=== PATIENT | female | born 1980 | race Caucasian/White ===

== ENCOUNTER 2020-01-13 13:25 | Emergency (ER) | payer BC, SELFPAY ==
--- NOTE | 2020-01-13 16:08 | CT_ITS ---
EXAMINATION: CT ABDOMEN AND PELVIS WITHOUT CONTRAST CLINICAL INFORMATION: Flank pain COMPARISON: Lumbar radiographs 06/18/2018 TECHNIQUE: Multidetector volumetric imaging was performed from the superior aspect of the liver through the pubic symphysis. No oral or intravenous contrast. Sagittal and coronal reformatted images were obtained on the technologist's workstation. This CT examination was performed using dose optimization techniques as appropriate, variously including the following: *Automated exposure control *Adjustment of mA and/or kV according to patient size (this includes techniques or standardized protocols for targeted exams where dose is matched to indication/reason for exam; i.e. extremities or head) *Use of iterative reconstruction technique DLP: 919 mGy-cm FINDINGS: LUNG BASES: The visualized lung bases are unremarkable. LIVER, GALLBLADDER, AND BILIARY TREE: The liver is normal in size, shape, and attenuation. No focal hepatic lesion or biliary ductal dilatation is present. The gallbladder is unremarkable with no evidence of radiopaque gallstones, gallbladder wall thickening, or obvious pericholecystic inflammatory changes. PANCREAS: Unremarkable. SPLEEN: Unremarkable. ADRENAL GLANDS: Unremarkable. KIDNEYS AND URETERS: There is mild left hydronephrosis secondary to a proximal left ureteral calculus at level L3-L4 measuring 5 mm in diameter, 691 HU attenuation, and residing 15.5 cm from the flank. There is no definite perinephric stranding. No other left urinary tract calculi. Right kidney shows no hydronephrosis, hydroureter, or perinephric stranding. There are 2 calculi on the right mid and lower pole, larger under 4 mm. BLADDER: Unremarkable. GASTROINTESTINAL TRACT: No bowel obstruction or inflammatory changes in the bowel or mesentery. No ascites or fluid collection. ABDOMINAL WALL: No significant hernia is appreciated. LYMPH NODES: No lymphadenopathy. VASCULAR: Unremarkable. PELVIC VISCERA: Unremarkable. OSSEOUS STRUCTURES: Unremarkable. CT/CT abdomen pelvis wo IV con IMPRESSION: 1. Mild left hydronephrosis secondary to a 5 mm proximal ureteral calculus at level L3-L4. 2. Two nonobstructing calculi right kidney, larger under 4 mm.
--- NOTE | 2020-01-13 16:13 | ED.ABDPAIN ---
HPI - Abdominal Pain General Chief Complaint: Abdominal Pain Stated Complaint: ?kidney stone Time Seen by Provider: 01/13/20 16:08 Source: patient Mode of arrival: ambulatory Limitations: no limitations History of Present Illness HPI narrative: Left side flank pain x 1 days went to sent here for further eval MD elicited complaint: flank pain Pertinent past history: kidney stones Onset (ago): hour(s) Pain Consistency: constant Severity: moderate Quality: stabbing and aching Radiation: LLQ and L flank Associated symptoms: nausea Related Data Patient : No Home Medications Medication Instructions Recorded Confirmed acetaminophen 325 mg tablet 650 mg PO Q6H 01/13/20 01/13/20 gabapentin 300 mg capsule 300 mg PO BID 01/13/20 01/13/20 oseltamivir 75 mg capsule 75 mg PO DAILY 01/13/20 01/13/20 oxycodone 5 mg tablet 5 mg PO Q6H PRN 01/13/20 01/13/20 Previous Rx's Medication Instructions Recorded naproxen 500 mg PO BID PRN #30 tab 01/13/20 oxycodone 5 mg PO Q8H PRN #14 tab 01/13/20 prednisone 20 mg PO DAILY #5 tab 01/13/20 tamsulosin [Flomax] 0.4 mg PO DAILY #10 cap 01/13/20 Allergies Allergy/AdvReac Type Severity Reaction Status Date / Time naproxen [NAPROXEN] Allergy Severe ANAPHALYXIS Unverified 12/05/19 19:37 codeine [CODEINE] Allergy Intermediate RASH Unverified 12/05/19 19:37 Penicillins [PCN] Allergy Intermediate UNKNOWN Unverified 12/05/19 19:37 penicillin V Allergy Unknown Verified 06/01/19 00:00 [id number]-[id number]-[id number] Allergy Unknown Uncoded 06/01/19 00:00 liquid codeine Allergy Unknown Uncoded 06/28/19 00:00 naproxen Allergy Unknown Uncoded 06/28/19 00:00 penicillin Allergy Unknown Uncoded 06/28/19 00:00 Review of Systems Review of Systems Constitutional: No Weight loss, No Fever, No Chills, No Night Sweats, No Fatigue, No Malaise ENT/Mouth: No Hearing loss, No Ear Pain, No Nasal Congestion, No Sinus Pain, No Hoarseness, No sore throat, No Rhinorrhea, No Swallowing Difficulty Eyes: No Eye Pain, No Swelling, No Redness, No Foreign Body, No Discharge, No Vision Changes Cardiovascular: No Chest Pain, No SOB, No Dyspnea on Exertion, No Orthopnea, No Edema, No Palpitations Respiratory: No Cough, No Sputum, No Wheezing, No Smoke Exposure, No Dyspnea Gastrointestinal: + Nausea, No Vomiting, No Diarrhea, No Constipation, + abdominal Pain, No Hematochezia, No Melena Genitourinary: no irregular bleeding, No Dysuria, No Urinary Frequency, No Hematuria, No Urinary Incontinence, No Urgency, No Flank Pain, No Urinary Flow Changes, No Hesitancy Musculoskeletal: No joint pain, No Myalgias, No Joint Swelling Skin: No Skin Lesions, No rash Neuro: No Weakness, No Numbness, No Paresthesias, No Loss of Consciousness, No Dizziness, No Headache Psych: No Anxiety/Panic, No Depression, No SI/HI/AH/VH, No Social Issues Heme/Lymph: No Bruising, No Bleeding,No Lymphadenopathy Endocrine: No Polyuria, No Polydipsia, No Temperature Intolerance Yes all other systems are reviewed and are negative Physical Exam Vital Signs: Vital Signs: Vital Signs Pulse Resp BP Pulse Ox 01/13/20 19:14 73 16 130/75 98 Body Mass Index 45.9 reviewed Const: General: cooperative and healthy appearing; No acute distress or intoxicated appearing Nutritional Appearance: average body habitus Orientation/consciousness: patient oriented x3 HENMT: Head: Yes normal to inspection Ears: hearing grossly normal bilaterally Eyes: General: appearance normal, both eyes and all related structures Visual Juarez: normal visual juarez by confrontation Neck: Neck: Yes normal visual inspection and No tender Thyroid: Thyroid normal Chest: Chest palpation & inspection: normal inspection of the chest Resp: Effort & Inspection: normal respiratory effort Cardio: Jugular venous distension: no JVD GI: Inspection: Yes normal to inspection Percussion: Yes normal to percussion Auscultation: normal bowel sounds : General: Yes no CVA tenderness Back/Spine/Pelvis: Back: no CVA tenderness Skin: General skin exam: no rashes or lesions noted Neuro: General: patient oriented x3 Extrem: General: Yes normal to inspection Course Course Course Narrative: Much more comfortable after pain medicine. 5 mm stone in the proximal ureter with mild associated hydro. Given Flomax case discussed with Urology recommendation for 20 mg of prednisone daily for 5 days along with pain management and will see in office. Dr. Harris. Patient comfortable plan. Requesting discharge stable for discharge. MDM - Abdominal Pain Lab Data Result diagrams: 01/13/20 16:55 01/13/20 16:55 Labs: Lab Results 01/13/20 01/13/20 01/13/20 Range/Units 16:55 16:55 16:55 WBC 10.7 (4.8-10.8) X10*3/uL RBC 4.73 (4.20-5.50) X10*6/uL Hgb 14.0 (12.0-16.0) g/dl Hct 41.8 (37-47) % MCV 88.4 (80-98) fL MCH 29.6 (27.0-33.0) pg MCHC 33.5 (31.0-35.0) g/dl RDW 12.6 (11.0-16.0) % Plt Count 279 (160-400) X10*3/uL MPV 10.1 (9.4-12.3) fL Immature Gran % (Auto) 0.4 (0.0-0.4) % Neut % (Auto) 79.9 H (45-73) % Lymph % (Auto) 13.0 L (20-40) % Villalba % (Auto) 4.4 (2-11) % Eos % (Auto) 1.8 (0-4) % Baso % (Auto) 0.5 (0-2) % Lymph # (Auto) 1.4 (1.2-4.9) X10*3/uL Villalba # (Auto) 0.5 (0.1-1.2) X10*3/uL Eos # (Auto) 0.2 (0.0-0.4) X10*3/uL Baso # (Auto) 0.1 (0.0-0.2) X10*3/uL Abs Immat Gran (auto) 0.04 H (0.00-0.03) X10*3/uL Absolute Neuts (auto) 8.6 H (2.0-8.3) X10*3/uL Absolute Nucleated RBC 0.000 (0.0-0.012) X10*3/uL Nucleated RBC % (auto) 0.0 (0.0-0.2) /100WBC Sodium 140 (135-145) mmol/L Potassium 4.2 (3.3-5.1) mmol/l Chloride 106 (96-108) mmol/L Carbon Dioxide 25 (22-29) mmol/L Anion Gap 13 (12-20) BUN 11 (9-16) mg/dL Creatinine 0.78 (0.5-1.4) mg/dL Estim Creat Clear Calc 112.3 Estimated GFR > 60 Random Glucose 92 (60-115) mg/dL Calcium 8.9 (8.4-10.2) mg/dL Total Bilirubin 0.4 (0.0-1.0) mg/dL AST 17 (5-31) U/L ALT 20 (0-31) U/L Alkaline Phosphatase 68 (39-117) U/L Total Protein 6.8 (6.5-8.0) g/dL Albumin 4.2 (3.5-5.0) g/dL Urine Color YELLOW Urine Appearance CLOUDY Urine pH 5.5 (5.0-8.0) Ur Specific [place] 1.025 (1.005-1.025) Urine Protein NEG (NEG-TRACE) MG/DL Urine Glucose (UA) NEG (NEG) MG/DL Urine Ketones 15 (NEG) MG/DL Urine Blood 2+ H (NEG) Urine Nitrite NEG (NEG) Ur Leukocyte Esterase NEG (NEG) Urine RBC 5-9 H (0) /HPF Urine WBC 0-2 (0-4) /HPF Ur Squamous Epith Cells 4+ /LPF Urine Bacteria 2+ /LPF Discharge Plan Discharge Clinical Impression: Calculus of kidney Patient Disposition: Home, Self-Care Instructions: Kidney Stones (ED), How to Strain Your Urine (ED) Additional Instructions: drink plenty fluids Take medication as prescribed Follow-up with Urology (Dr. Harris as discussed) Return if any concerns or worsening symptoms Thank you Prescriptions: New naproxen 500 mg tablet 500 mg PO BID PRN (Reason: pain) Qty: 30 RF: 0 prednisone 20 mg tablet 20 mg PO DAILY Qty: 5 RF: 0 oxycodone 5 mg tablet 5 mg PO Q8H PRN (Reason: pain) Qty: 14 RF: 0 tamsulosin [Flomax] 0.4 mg capsule 0.4 mg PO DAILY Qty: 10 RF: 0 No Action gabapentin 300 mg capsule 300 mg PO BID RF: 0 oxycodone 5 mg tablet 5 mg PO Q6H PRNRF: 0 acetaminophen 325 mg tablet 650 mg PO Q6H RF: 0 oseltamivir 75 mg capsule 75 mg PO DAILY RF: 0 Referrals: Josh Harris MD [Physician] - 1 week Avelina Live MD [Primary Care Provider] - 10 days Interventions: ED Discharge Assessment Last Done: 01/13/20 21:25 Discharge Date/Time: 01/13/20 21:25 [facility] Past Medical History Attestation statement: The following information was validated with the patient. Social History Social History Alcohol intake: unknown Smoking Status: Unknown if ever smoked Use of substances other than those prescribed or required for medical reasons: No Advance Directives: No Advance Directives Information Provided: Yes
[2020-01-13 16:20] VITALS: BP 132/78; PULSE 78; RESP 18; TEMP 36.7; O2SAT 97; BMI 45.9
[2020-01-13] MEDS: 0.9 % Sodium Chloride 500 ML 1000 ML IV ×2 (17:04→20:01)
[2020-01-13] MEDS: ondansetron HCL 4 MG/2 ML VIAL IVPUSH (17:05)
[2020-01-13] MEDS: Ketorolac Tromethamine 30 MG/ML VIAL IVPUSH (17:05)
[2020-01-13 17:10] LABS: MANUAL DIFF FLAG NO
[2020-01-13 17:11] LABS: Basophils Absolute Auto 0.1 X10*3/uL (0.0-0.2); Basophils Percent Auto 0.5 % (0-2); Eosinophils Absolute Auto 0.2 X10*3/uL (0.0-0.4); Eosinophils Percent Auto 1.8 % (0-4); Hematocrit 41.8 % (37-47); Imm Gran Abs Auto 0.04 X10*3/uL (0.00-0.03); Imm Gran Pct Auto 0.4 % (0.0-0.4); Lymphocytes Absolute Auto 1.4 X10*3/uL (1.2-4.9); Mean Corpuscular HGB Conc 33.5 g/dl (31.0-35.0); Mean Corpuscular Hemoglobin 29.6 pg (27.0-33.0); Mean Corpuscular Volume 88.4 fL (80-98); Mean Platelet Volume 10.1 fL (9.4-12.3); Monocytes Absolute Auto 0.5 X10*3/uL (0.1-1.2); Monocytes Percent Auto 4.4 % (2-11); Neutrophils Absolute Auto 8.6 X10*3/uL (2.0-8.3); Neutrophils Percent Auto 79.9 % (45-73); Platelet Count 279 X10*3/uL (160-400); Red Blood Count 4.73 X10*6/uL (4.20-5.50); Red Cell Distribution Width 12.6 % (11.0-16.0); White Blood Count 10.7 X10*3/uL (4.8-10.8)
[2020-01-13 17:12] LABS: Glucose Urine UA NEG (NEG); Leukocyte Esterase Urine NEG (NEG); Nitrite Urine NEG (NEG); PH 5.5 (5.0-8.0); Specific Gravity - Urine 1.025 (1.005-1.025); Urine Blood 2+ (NEG); Urine Ketones 15 MG/DL (NEG); Urine Protein NEG (NEG-TRACE)
[2020-01-13 17:18] LABS: Appearance Urine CLOUDY; Color Urine YELLOW
[2020-01-13 17:23] LABS: Bacteria Urine 2+ /LPF; Squamous Epithelial Cell Urine 4+ /LPF; WBC Urine 0-2 /HPF (0-4)
[2020-01-13 17:44] LABS: Alanine Aminotransferase 20 U/L (0-31); Albumin Level 4.2 g/dL (3.5-5.0); Alkaline Phosphatase 68 U/L (39-117); Anion Gap 13 (12-20); Aspartate Amino Transferase 17 U/L (5-31); Bilirubin Total 0.4 mg/dL (0.0-1.0); Blood Urea Nitrogen 11 mg/dL (9-16); Carbon Dioxide 25 mmol/L (22-29); Chloride 106 mmol/L (96-108); Creatinine Clr Calc Pharmacy 112.3; Estimated Glomerular Filt Rate > 60; Glucose Random 92 mg/dL (60-115); Potassium 4.2 mmol/l (3.3-5.1); Sodium 140 mmol/L (135-145); Total Protein 6.8 g/dL (6.5-8.0)
[2020-01-13 17:47] LABS: Calcium 8.9 mg/dL (8.4-10.2)
[2020-01-13 19:14] VITALS: BP 130/75; PULSE 73; RESP 16; O2SAT 98
[2020-01-13] MEDS: oxyCODONE HCl Immed Release 5 MG TABLET PO (19:15)
[2020-01-13] MEDS: Tamsulosin HCL 0.4 MG CAPSULE PO (19:15)
[2020-01-13] MEDS: Morphine Sulfate 4 MG/ML CARTRIDGE IVPUSH (19:15)
[2020-01-13] MEDS: HYDROmorphone HCl 1 MG/ML SYRINGE IVPUSH (20:00)
== END 2020-01-13 21:25 | disposition home or self-care (01) ==
PROVIDERS: Nurse Practitioner Primary Care; Emergency Provider Internal Medicine; PCP Internal Medicine
DX: N20.0 Calculus of kidney (principal); Z79.899 Other long term (current) drug therapy
CPT/HCPCS: 36415; 74176; 80053; 81001; 85025; 96374; 96375; 99284; J1170; J1885; J2270; J2405

== ENCOUNTER → 2020-01-17 09:17 | Outpatient (BNVA) | payer BC, SELFPAY | PROVIDERS: PCP Internal Medicine; Referring Provider Internal Medicine; Visit Provider Urology | DX: N20.0 Calculus of kidney (principal); Z79.891 Long term (current) use of opiate analgesic ==

== ENCOUNTER 2020-02-17 17:57 | Outpatient (REF) | payer BC, SELFPAY | END 2020-02-17 17:58 | disposition home or self-care (01) | LOC: HO.LAB 17:57 | PROVIDERS: PCP Internal Medicine; Visit Provider Internal Medicine | DX: Z20.828 Contact with and (suspected) exposure to other viral communicable diseases (principal) | CPT/HCPCS: U0003 ==

== ENCOUNTER 2020-03-11 09:08 | Outpatient (REF) | payer BC, SELFPAY | END 2020-03-11 09:09 | disposition home or self-care (01) | LOC: HO.LAB 09:08 | PROVIDERS: Visit Provider Nurse Practitioner Family | DX: Z20.828 Contact with and (suspected) exposure to other viral communicable diseases (principal); J01.00 Acute maxillary sinusitis, unspecified | CPT/HCPCS: 87071; 87880; U0003 ==

== ENCOUNTER 2020-03-31 | Outpatient (REF) | payer BC, SELFPAY | END 2020-03-31 00:01 | disposition home or self-care (01) | LOC: HO.LNP | PROVIDERS: Visit Provider Urology | DX: N20.0 Calculus of kidney (principal); N20.2 Calculus of kidney with calculus of ureter | CPT/HCPCS: 82365; 88300 ==

== ENCOUNTER → 2020-03-31 09:26 | Outpatient (BNVA) | payer BC, SELFPAY | PROVIDERS: PCP Internal Medicine; Visit Provider Urology | DX: Z76.89 Persons encountering health services in other specified circumstances (principal) ==

== ENCOUNTER 2020-10-21 14:02 | Outpatient (REF) | payer BC, SELFPAY ==
--- NOTE | ~2020-10-21 | US_ITS ---
EXAMINATION: US RETROPERITONEAL LIMITED (RENAL ONLY) CLINICAL INFORMATION: Calculus of kidney. COMPARISON: CT abdomen and pelvis without contrast dated 01/13/2020. TECHNIQUE: Real-time imaging of the kidneys. FINDINGS: RIGHT KIDNEY: 10.4 x 5.1 x 5.7 cm (SAG x AP x TRV). The kidney is normal in size, contour, and echogenicity. Renal cortical thickness is normal. There is a 2 x 3 mm stone in the lower pole. No focal parenchymal lesions or hydronephrosis. LEFT KIDNEY: 11.2 x 5.7 x 5.4 cm (SAG x AP x TRV). The kidney is normal in size, contour, and echogenicity. Renal cortical thickness is normal. There is a 2 x 3 mm stone in the lower pole. No focal parenchymal lesions or hydronephrosis. US/US renal BI IMPRESSION: Small bilateral renal stones.
== END 2020-10-21 14:03 | disposition home or self-care (01) ==
LOC: HO.US 14:02
PROVIDERS: Visit Provider Urology
DX: N20.0 Calculus of kidney (principal)
CPT/HCPCS: 76775

== ENCOUNTER 2020-10-23 07:12 | Outpatient (REF) | payer BC, SELFPAY ==
[2020-10-23 11:15] LABS: Hematocrit 40.7 % (37-47); Hemoglobin 13.7 g/dl (12.0-16.0); Mean Corpuscular HGB Conc 33.7 g/dl (31.0-35.0); Mean Corpuscular Hemoglobin 29.9 pg (27.0-33.0); Mean Corpuscular Volume 88.9 fL (80-98); Mean Platelet Volume 10.4 fL (9.4-12.3); Platelet Count 273 X10*3/uL (160-400); Red Blood Count 4.58 X10*6/uL (4.20-5.50); Red Cell Distribution Width 12.1 % (11.0-16.0); White Blood Count 5.9 X10*3/uL (4.8-10.8)
[2020-10-23 11:53] LABS: TSH reflex Free T4 1.87 uIU/mL (0.32-4.0)
[2020-10-23 11:56] LABS: Alanine Aminotransferase 12 U/L (0-31); Albumin Level 3.9 g/dL (3.5-5.0); Alkaline Phosphatase 71 U/L (39-117); Anion Gap 14 (12-20); Aspartate Amino Transferase 20 U/L (5-31); Bilirubin Total 0.4 mg/dL (0.0-1.0); Blood Urea Nitrogen 12 mg/dL (9-16); Calcium 9.3 mg/dL (8.4-10.2); Carbon Dioxide 24 mmol/L (22-29); Chloride 107 mmol/L (96-108); Cholesterol 160 mg/dL; Estimated Glomerular Filt Rate > 60; Glucose Fasting 87 mg/dL (60-99); HDL Cholesterol 36 mg/dL; LDL Cholesterol Calculated 100 mg/dl; Potassium 4.6 mmol/L (3.3-5.1); Sodium 140 mmol/L (135-145); Total Protein 6.9 g/dL (6.5-8.0); Triglycerides 122 mg/dL
[2020-10-24 18:21] LABS: Follicle Stimulating Hormone 4.8 mIU/mL
== END 2020-10-23 07:13 | disposition home or self-care (01) ==
LOC: HO.HMGCLDS 07:12
PROVIDERS: PCP Internal Medicine; Visit Provider Internal Medicine
DX: N64.4 Mastodynia (principal); R23.2 Flushing
CPT/HCPCS: 36415; 80053; 80061; 83001; 84443; 85027

== ENCOUNTER → 2020-10-29 09:40 | Outpatient (BNVA) | payer BC, SELFPAY | PROVIDERS: PCP Internal Medicine ==

== ENCOUNTER 2021-10-22 09:39 | Outpatient (REF) | payer OTHER, SELFPAY ==
[2021-10-22 11:52] LABS: MANUAL DIFF FLAG NO
[2021-10-22 12:06] LABS: Basophils Absolute Auto 0.1 X10*3/uL (0.0-0.2); Basophils Percent Auto 1.1 % (0-2); Eosinophils Absolute Auto 0.2 X10*3/uL (0.0-0.4); Eosinophils Percent Auto 3.4 % (0-4); Hematocrit 41.2 % (37.0-47.0); Hemoglobin 13.9 g/dl (12.0-16.0); Imm Gran Abs Auto 0.03 X10*3/uL (0.00-0.03); Imm Gran Pct Auto 0.5 % (0.0-0.4); Lymphocytes Absolute Auto 1.8 X10*3/uL (1.2-4.9); Lymphocytes Percent Auto 29.6 % (20-40); Mean Corpuscular HGB Conc 33.7 g/dl (31.0-35.0); Mean Corpuscular Hemoglobin 29.6 pg (27.0-33.0); Mean Corpuscular Volume 87.8 fL (80.0-98.0); Mean Platelet Volume 10.3 fL (9.4-12.3); Monocytes Absolute Auto 0.4 X10*3/uL (0.1-1.2); Monocytes Percent Auto 7.2 % (2-11); Neutrophils Absolute Auto 3.6 x10*3/uL (2.0-8.3); Neutrophils Percent Auto 58.2 % (45-73); Platelet Count 282 X10*3/uL (160-400); Red Blood Count 4.69 X10*6/uL (4.20-5.50); Red Cell Distribution Width 12.5 % (11.0-16.0); White Blood Count 6.1 X10*3/uL (4.8-10.8)
[2021-10-22 12:48] LABS: Alanine Aminotransferase 20 U/L (0-31); Alkaline Phosphatase 68 U/L (39-117); Anion Gap 11 (12-20); Aspartate Amino Transferase 16 U/L (5-31); Bilirubin Total 0.6 mg/dL (0.0-1.0); Blood Urea Nitrogen 12 mg/dL (9-16); Calcium 8.9 mg/dL (8.4-10.2); Carbon Dioxide 28 mmol/L (22-29); Chloride 106 mmol/L (96-108); Cholesterol 174 mg/dL; Estimated Glomerular Filt Rate > 60; Glucose Fasting 88 mg/dL (60-99); HDL Cholesterol 38 mg/dL; LDL Cholesterol Calculated 111 mg/dl; Potassium 4.2 mmol/L (3.3-5.1); Sodium 141 mmol/L (135-145); Total Protein 6.5 g/dL (6.5-8.0); Triglycerides 127 mg/dL
[2021-10-22 13:10] LABS: TSH reflex Free T4 2.06 uIU/mL (0.32-4.0)
== END 2021-10-22 09:40 | disposition home or self-care (01) ==
LOC: HO.WFDLDS 09:39
PROVIDERS: Visit Provider Internal Medicine
DX: Z00.00 Encounter for general adult medical examination without abnormal findings (principal); Z13.220 Encounter for screening for lipoid disorders; Z13.29 Encounter for screening for other suspected endocrine disorder
CPT/HCPCS: 36415; 80053; 80061; 84443; 85025

== ENCOUNTER 2021-10-27 15:04 | Outpatient (REF) | payer OTHER, SELFPAY ==
--- NOTE | ~2021-10-27 | US_ITS ---
EXAMINATION: US RETROPERITONEAL LIMITED (RENAL ONLY) CLINICAL INFORMATION: Calculus of kidney. COMPARISON: US retroperitoneal limited (renal only) 10/21/2020. Selected portions of CT abdomen and pelvis without contrast 01/13/2020. TECHNIQUE: Real-time imaging of the kidneys. FINDINGS: RIGHT KIDNEY: 10.8 x 4.8 x 5.4 cm (SAG x AP x TRV). The kidney is normal in size, contour, and echogenicity. Renal cortical thickness is normal. No shadowing calculi or focal parenchymal lesions. No hydronephrosis. LEFT KIDNEY: 11.2 x 5.3 x 5.4 cm (SAG x AP x TRV). The kidney is normal in size, contour, and echogenicity. Renal cortical thickness is normal. No shadowing calculi or focal parenchymal lesions. No hydronephrosis. US/US renal BI IMPRESSION: No evidence of obstruction, suspicious mass or shadowing calculus Previous CT demonstrated some punctate nonobstructing calculi.
== END 2021-10-27 15:05 | disposition home or self-care (01) ==
LOC: HO.US 15:04
PROVIDERS: PCP Internal Medicine
DX: N20.0 Calculus of kidney (principal)
CPT/HCPCS: 76775

== ENCOUNTER 2021-10-29 14:16 | Outpatient (REF) | payer OTHER, SELFPAY ==
--- NOTE | ~2021-10-29 | MM_ITS ---
EXAMINATION: MM SCREENING DIGITAL BREAST TOMOSYNTHESIS, BILATERAL CLINICAL INFORMATION: Screening. Asymptomatic. Age 41. No prior mammography. The lifetime risk of breast cancer based on the Tyrer-Cuzick Model is 19%. COMPARISON: None (current study represents initial baseline exam). TECHNIQUE: Digital breast tomosynthesis is performed in both the craniocaudal and mediolateral oblique views along with computer-aided detection (CAD). Synthesized 2D images are generated from the tomosynthesis. FINDINGS: There are scattered areas of fibroglandular density (ACR BI-RADS breast composition Category b). There are no significant masses, abnormal calcifications, or other abnormalities. The axilla and skin contours are unremarkable. MM/MM tomosynthesis screening BI IMPRESSION: No mammographic evidence of malignancy. ASSESSMENT: BI-RADS 1: Negative RECOMMENDATION: Routine annual mammography screening. This patient's information was entered into a reminder system with a target due date for their next mammogram.
== END 2021-10-29 14:17 | disposition home or self-care (01) ==
LOC: HO.MAMMO 14:16
PROVIDERS: PCP Internal Medicine; Visit Provider Internal Medicine
DX: Z12.31 Encounter for screening mammogram for malignant neoplasm of breast (principal)
CPT/HCPCS: 77063; 77067

== ENCOUNTER 2022-03-15 10:17 | Outpatient (REF) | payer OTHER, SELFPAY ==
[2022-03-15 14:37] LABS: Influenza A PCR NEGATIVE (Negative); Influenza B PCR NEGATIVE (Negative); Resp Syncy Virus RNA Qual PCR NEGATIVE (Negative); SARS COV2 PCR INHOUSE NEGATIVE (Negative)
== END 2022-03-15 10:18 | disposition home or self-care (01) ==
LOC: HO.LAB 10:17
PROVIDERS: Visit Provider Family Medicine
DX: Z20.822 Contact with and (suspected) exposure to COVID-19 (principal); B34.9 Viral infection, unspecified; R09.89 Other specified symptoms and signs involving the circulatory and respiratory systems
CPT/HCPCS: 0241U

== ENCOUNTER 2022-03-15 11:40 | Outpatient (REF) | payer OTHER, SELFPAY ==
--- NOTE | ~2022-03-15 | XR_ITS ---
EXAMINATION: XR CHEST CLINICAL INFORMATION: Cough COMPARISON: None TECHNIQUE: 2 views of the chest were obtained. FINDINGS: The cardiac and mediastinal contours are normal. There are bilateral lower lung infiltrates suggestive of pneumonia. There is no pleural effusion or pneumothorax. Bony structures are unremarkable. XR/XR chest 2V IMPRESSION: Bilateral lower lung pneumonia.
== END 2022-03-15 11:41 | disposition home or self-care (01) ==
LOC: HO.HMGCX 11:40
PROVIDERS: PCP Internal Medicine; Visit Provider Family Medicine
DX: R05.9 Cough, unspecified (principal)
CPT/HCPCS: 71046

== ENCOUNTER 2022-04-14 15:09 | Outpatient (REF) | payer OTHER, SELFPAY ==
--- NOTE | ~2022-04-14 | XR_ITS ---
EXAMINATION: XR HIP, RIGHT CLINICAL INFORMATION: Pain. COMPARISON: None TECHNIQUE: AP and frog-leg lateral views of the right hip are submitted, together with a frontal view of the pelvis. FINDINGS: Bones and soft tissues are normal. No fracture. Alignment is anatomic. Hip joint space is maintained. XR/XR hip RT w PEL1V IMPRESSION: Normal right hip.
== END 2022-04-14 15:10 | disposition home or self-care (01) ==
LOC: HO.XRAY 15:09
PROVIDERS: PCP Internal Medicine; Visit Provider Physical Medicine & Rehabilitation
DX: M25.551 Pain in right hip (principal)
CPT/HCPCS: 73502

== ENCOUNTER 2022-04-27 09:04 | Outpatient (REF) | payer OTHER, SELFPAY ==
--- NOTE | ~2022-04-27 | XR_ITS ---
EXAMINATION: XR CHEST CLINICAL INFORMATION: Cough. COMPARISON: 03/15/2022 chest radiographs. TECHNIQUE: Frontal view of the chest was obtained. FINDINGS: No significant abnormality is noted involving the heart, lungs, mediastinum, bony thorax or soft tissues. XR/XR chest 1V IMPRESSION: No acute cardiopulmonary process. Interval resolution of previously seen infiltrates.
[2022-04-27 11:24] LABS: MANUAL DIFF FLAG NO
[2022-04-27 11:33] LABS: Basophils Absolute Auto 0.1 X10*3/uL (0.0-0.2); Eosinophils Absolute Auto 0.4 X10*3/uL (0.0-0.4); Eosinophils Percent Auto 6.5 % (0-4); Hematocrit 40.6 % (37.0-47.0); Imm Gran Abs Auto 0.03 X10*3/uL (0.00-0.03); Imm Gran Pct Auto 0.5 % (0.0-0.4); Lymphocytes Absolute Auto 1.7 X10*3/uL (1.2-4.9); Lymphocytes Percent Auto 28.1 % (20-40); Mean Corpuscular HGB Conc 34.5 g/dl (31.0-35.0); Mean Corpuscular Hemoglobin 30.8 pg (27.0-33.0); Mean Corpuscular Volume 89.4 fL (80.0-98.0); Mean Platelet Volume 10.2 fL (9.4-12.3); Monocytes Absolute Auto 0.5 X10*3/uL (0.1-1.2); Monocytes Percent Auto 7.4 % (2-11); Neutrophils Absolute Auto 3.5 x10*3/uL (2.0-8.3); Neutrophils Percent Auto 56.5 % (45-73); Platelet Count 315 X10*3/uL (160-400); Red Blood Count 4.54 X10*6/uL (4.20-5.50); Red Cell Distribution Width 12.7 % (11.0-16.0); White Blood Count 6.1 X10*3/uL (4.8-10.8)
[2022-04-27 12:13] LABS: Alanine Aminotransferase 29 U/L (0-31); Albumin Level 4.2 g/dL (3.5-5.0); Alkaline Phosphatase 82 U/L (39-117); Anion Gap 12 (12-20); Aspartate Amino Transferase 19 U/L (5-31); Bilirubin Total 0.4 mg/dL (0.0-1.0); Blood Urea Nitrogen 13 mg/dL (9-16); Calcium 9.1 mg/dL (8.4-10.2); Carbon Dioxide 23 mmol/L (22-29); Chloride 107 mmol/L (96-108); Estimated Glomerular Filt Rate > 60; Glucose Random 92 mg/dL (60-115); Potassium 4.3 mmol/L (3.3-5.1); Sodium 138 mmol/L (135-145); Total Protein 6.8 g/dL (6.5-8.0)
[2022-04-27 12:30] LABS: Appearance Urine Clear; Color Urine Yellow; Glucose Urine UA Negative (Negative); Leukocyte Esterase Urine Negative (Negative); Nitrite Urine Negative (Negative); Specific Gravity - Urine 1.015 (1.005-1.025); Urine Blood Negative (Negative); Urine Ketones Negative (Negative); Urine Protein Negative (Neg-Trace)
[2022-04-27 12:43] LABS: Bacteria Urine None Seen (None Seen); Hyaline Casts Urine 0-2 /LPF (0-2); RBC Urine 0-2 /HPF (0-2); Squamous Epithelial Cell Urine 0-2 /HPF (0-2); WBC Urine 0-5 /HPF (0-5)
== END 2022-04-27 09:05 | disposition home or self-care (01) ==
LOC: HO.HMGCLDS 09:04
PROVIDERS: Visit Provider Internal Medicine
DX: R05.9 Cough, unspecified (principal)
CPT/HCPCS: 36415; 71045; 80053; 81001; 85025

== ENCOUNTER 2022-10-17 10:10 | Outpatient (AMB) | payer OTHER, SELFPAY ==
--- NOTE | 2022-10-17 10:13 | MHC.PC.OV ---
Vital Signs 10/17/22 10:15 Height 5 ft 1 in Weight 265 lb 8 oz BMI 50.2 BP 112/78 Blood Pressure Location Rt brachial Position Sitting Pulse 76 Pulse Source Pulse Oximeter Pulse Oximetry (%) 97 Oxygen Delivery Method Room Air Intake Visit Reasons: PE Allergies naproxen [NAPROXEN] Allergy (Severe, Verified 10/17/22 10:15) ANAPHALYXIS codeine [CODEINE] Allergy (Intermediate, Verified 10/17/22 10:15) RASH Penicillins [PCN] Allergy (Intermediate, Verified 10/17/22 10:15) UNKNOWN penicillin V Allergy (Unknown, Verified 10/17/22 10:15) Unknown liquid codeine Allergy (Mild, Uncoded 05/10/22 10:19) Rash penicillin Allergy (Mild, Uncoded 05/10/22 10:19) hives Vekxdeh-Ghpjvoodjegtaaai-MOSS Allergy (Unknown, Uncoded 05/10/22 10:19) Unknown naproxen Adverse Reaction (Severe, Uncoded 05/10/22 10:19) Anaphylaxis Medication List - Last Reconciled 10/17/22 by Avelina Live MD acetaminophen 650 mg PO Q6H albuterol sulfate 90 mcg/actuation 2 puffs inhalation 6XD cetirizine (Zyrtec) 10 mg PO DAILY PRN fluticasone propionate 44 mcg/actuation (Flovent HFA) 2 puffs inhalation BID gabapentin 300 mg PO BID multivitamin (Daily Multi-Vitamin tablet) 1 tab PO DAILY [probiotic PO] pyridoxine (vitamin B6) 100 mg PO DAILY sertraline (Zoloft) 50 mg PO DAILY Tobacco use date assessed: 10/17/22 Dental Screening Dental Screen Date: 10/17/22 Did you have a dental visit in the last 12 months?: Yes Did you have a dental problem in the last 6 months where you did not have access to dental care?: No Was dental information given to patient?: No HPI PE HPI Details Pt presents for PE. Pt's father last November and stress out about her not working and having problem with depression. Patient cannot afford counseling. She is complaining of depression but denies suicidal ideation. Patient has been taking gabapentin for chronic lower back pain. [facility] Medical History Annual physical exam Breast pain DJD (degenerative joint disease) Endometriosis Hot flashes Overweight Renal calculi Surgical History S/P hysterectomy Family History Father No problems noted. Mother No problems noted. Social History Housing: House Alcohol intake: current Alcohol intake frequency: holidays/special occasions only Patient Tobacco Use Status: Never used Tobacco e-Cigarette/Vaping Use: Never Used Current occupational status: employed Cognitive needs: No Hearing needs: No Vision needs: No Questionnaire Thrive Questionnaire Date Thrive assessed: 10/15/21 AUDIT C Alcohol Use Questionnaire (AUDIT-C) 1. How often do you have a drink containing alcohol?: 2-4 times a month 2. How many drinks containing alcohol do you have on a typical day when you are drinking?: 1 or 2 3. How often do you have six or more drinks on one occasion?: Never Total Score: 2 Score Reviewed/Action Taken: Yes CLINTON-7 AMB Questionnaire CLINTON-7 Date CLINTON - 7 assessed: 10/15/21 Source: Developed by Drs. Pavan Law, Blank Sumner, Sctot Fragoso and colleagues, with an educational adonay from [employer]. Review of Systems Const All systems reviewed & are unremarkable except as noted in HPI and below Reports no additional complaints Eyes Reports no additional complaints ENT Reports no additional complaints Card Reports no additional complaints Resp Reports no additional complaints GI Reports no additional complaints Reports no additional complaints Physical exam (Primary Care) Vital Signs: Last Vital Signs Pulse 76 10/17/22 10:15 BP 112/78 10/17/22 10:15 Pulse Ox 97 10/17/22 10:15 Oxygen Delivery Method Room Air 10/17/22 10:15 BMI result Body Mass Index 50.2 Tobacco/Smoking Status: Tobacco use Status Tobacco use date assessed 10/17/22 10/17/22 10:18 Patient Tobacco Use Status Never used Tobacco 10/17/22 10:18 e-Cigarette/Vaping Use Never Used 10/17/22 10:18 Thrive Assessment: Date of Thrive Assessment Date Thrive assessed 10/15/21 10/17/22 10:18 Const General: no acute distress HENMT Head: Yes normal to inspection Ears: hearing grossly normal bilaterally General nose exam: Normal external nose present Face and sinus: Yes normal facial exam Mouth: Normal oral and palatal mucosa present Throat: Yes posterior oropharynx normal Eyes General: appearance normal, both eyes and all related structures Neck Neck: Yes no lymphadenopathy and Yes supple Resp Effort & Inspection: normal respiratory effort Auscultation: clear to auscultation bilaterally Cardio Rhythm: regular rhythm Heart sounds: S1 normal heart sound present and S2 normal heart sound present GI Inspection: Yes normal to inspection Palpation (GI): Soft to palpation Percussion: Yes normal to percussion Auscultation: normal bowel sounds General: Yes Bimanual renal exam normal bilaterally Assessment and Plan Assessment & Plan (1) Annual physical exam: Code(s): Z00.00 - Encounter for general adult medical examination without abnormal findings Plan: Well-balanced diet and regular physical activity weight loss discussed with the patient. (2) Overweight: Code(s): E66.3 - Overweight Plan: Weight loss discussed with the patient (3) Asthma: Code(s): J45.909 - Unspecified asthma, uncomplicated Plan: Patient will continue antihistamine and albuterol as needed. (4) Anxiety and depression: Code(s): F41.9 - Anxiety disorder, unspecified; F32.A - Depression, unspecified Plan: Stress management and relaxation techniques discussed with the patient. Zoloft 25 mg for the 1st week increase to 50 mg will be started. Patient will follow-up in 5 weeks counseling was recommended Medications: New sertraline (Zoloft) 1/2 tabl qd for 1 week, then 1 tabl qd 50 mg PO DAILY 90 tabs 1RF Coding Level of Care Code Est Pt Prev Care 40-64y(89804) Diagnoses Annual physical exam Z00.00 Overweight E66.3 Asthma J45.909 Anxiety and depression F41.9; F32.A
[2022-10-17 10:15] VITALS: BP 112/78; PULSE 76; O2SAT 97; BMI 50.2
== END 2022-10-17 11:50 | disposition home or self-care (01) ==
PROVIDERS: Visit Provider Internal Medicine
DX: Z00.00 Encounter for general adult medical examination without abnormal findings (principal); E66.3 Overweight; J45.909 Unspecified asthma, uncomplicated; F41.9 Anxiety disorder, unspecified; F32.A Depression, unspecified
CPT/HCPCS: 99396

== ENCOUNTER 2022-11-04 07:42 | Outpatient (REF) | payer OTHER, SELFPAY ==
--- NOTE | ~2022-11-04 | US_ITS ---
EXAMINATION: US RETROPERITONEAL LIMITED (RENAL ONLY) CLINICAL INFORMATION: Calculus of kidney. COMPARISON: Renal ultrasound 10/27/2021 and 10/21/2020. CT abdomen and pelvis 01/13/2020. TECHNIQUE: Real-time imaging of the kidneys. Limited visualization due to bowel gas. FINDINGS: RIGHT KIDNEY: 10.8 x 4.8 x 6.1 cm (SAG x AP x TRV). Right renal 0.3 cm mid pole echogenic cortical focus may represent a mass such as an angiomyolipoma and was not identified on the prior exam. There is a 0.4 cm right renal midpole echogenic focus characteristic of a calculus. No hydronephrosis. Limited visualization. LEFT KIDNEY: 11.2 x 6.5 x 4.9 cm (SAG x AP x TRV). No hydronephrosis. No renal calculi. Limited visualization. US/US renal BI IMPRESSION: 1. Right renal 0.3 cm mid pole echogenic cortical focus may represent a mass such as an angiomyolipoma and was not identified on the prior exam. 2. There is a 0.4 cm right renal midpole echogenic focus characteristic of a calculus. No hydronephrosis.
== END 2022-11-04 07:43 | disposition home or self-care (01) ==
LOC: HO.US 07:42
PROVIDERS: Visit Provider Nurse Practitioner Family
DX: N20.0 Calculus of kidney (principal); D17.9 Benign lipomatous neoplasm, unspecified
CPT/HCPCS: 76775

== ENCOUNTER 2022-11-04 13:33 | Outpatient (AMB) | payer OTHER, SELFPAY ==
--- NOTE | 2022-11-04 13:34 | MHC.OFFVIS ---
Intake Intake Visit Reasons: 1Y US follow up Intake Note: Patient presents for 1yr follow up ultrasound/kidney stone (imaging 11/04) Urology Medications: Vitamin B6 Blood Thinner: none Driver Medic Required: No Accompanied by: Self / Same As Patient Allergies naproxen [NAPROXEN] Allergy (Severe, Verified 11/04/22 14:29) ANAPHALYXIS codeine [CODEINE] Allergy (Intermediate, Verified 11/04/22 14:29) RASH Penicillins [PCN] Allergy (Intermediate, Verified 11/04/22 14:29) UNKNOWN penicillin V Allergy (Unknown, Verified 11/04/22 14:29) Unknown liquid codeine Allergy (Mild, Uncoded 11/04/22 14:29) Rash penicillin Allergy (Mild, Uncoded 11/04/22 14:29) hives Mizrlfk-Dtngfdtijuvptmhk-RNZC Allergy (Unknown, Uncoded 11/04/22 14:29) Unknown naproxen Adverse Reaction (Severe, Uncoded 11/04/22 14:29) Anaphylaxis Medication List - Last Reconciled 11/04/22 by SUSAN Stockton acetaminophen 650 mg PO Q6H albuterol sulfate 90 mcg/actuation 2 puffs inhalation 6XD cetirizine (Zyrtec) 10 mg PO DAILY PRN fluticasone propionate 44 mcg/actuation (Flovent HFA) 2 puffs inhalation BID gabapentin 300 mg PO BID multivitamin (Daily Multi-Vitamin tablet) 1 tab PO DAILY [probiotic PO] sertraline (Zoloft) 50 mg PO DAILY HPI HPI Comments History of Present Illness Details Sienna is a pleasant 42-year-old female patient of Dr. Live. She has a past medical history of degenerative joint disease, endometriosis, and renal calculi. She is being follow-up on today via video telehealth for her longstanding history of nephrolithiasis. In discussion with the patient today she reports to be doing and feeling well. Recent renal imaging results reviewed with the patient today. right kidney was 0.3 cm mid pole echogenic cortical focus may represent a mass such as an angiomyolipoma and was not identified on the prior exam. There is a 0.4 cm right renal midpole echogenic focus characteristic of a calculus. No hydronephrosis noted bilaterally. Discussed at length potential causes for nephrolithiasis. Discussed and educated on the importance of drinking plenty of water daily. Patient otherwise denies any urinary issues or concerns at this time. She denies urinary urgency, urinary frequency, incontinence, nocturia, hematuria, dysuria, foul smelling urine, changes to urinary stream, flank pain, fever, and or chills. She is happy with her current voiding parameters. She otherwise offers no issues or concerns at this time. [facility] Medical History Annual physical exam Breast pain DJD (degenerative joint disease) Endometriosis Hot flashes Overweight Renal calculi Surgical History S/P hysterectomy Family History Father No problems noted. Mother No problems noted. Social History Housing: House Alcohol intake: current Alcohol intake frequency: holidays/special occasions only Patient Tobacco Use Status: Never used Tobacco e-Cigarette/Vaping Use: Never Used Current occupational status: employed Cognitive needs: No Hearing needs: No Vision needs: No Review of Systems Const All systems reviewed & are unremarkable except as noted in HPI and below Reports no additional complaints Eyes Reports no additional complaints ENT Reports no additional complaints Card Reports no additional complaints Resp Reports no additional complaints GI Reports no additional complaints Reports as per HPI Musc Reports as per HPI Neuro Reports no additional complaints Psych Reports no additional complaints Endo Reports no additional complaints Physical Exam Const General: cooperative, healthy appearing, comfortable, no acute distress, well developed, alert and awake Orientation/consciousness: patient oriented x3 Resp Effort & Inspection: able to speak in complete sentences Neuro General: patient oriented x3 Psych Appearance: well kempt Speech and movement: Clear speech present Affect: normal affect Attitude: cooperative Insight: Good insight present (Psych) Judgement: Good judgement present (Psych) Results Reviewed Results Reviewed: Date of Service: 11/04/22 EXAMINATION: US RETROPERITONEAL LIMITED (RENAL ONLY) FINDINGS: RIGHT KIDNEY: 10.8 x 4.8 x 6.1 cm (SAG x AP x TRV). Right renal 0.3 cm mid pole echogenic cortical focus may represent a mass such as an angiomyolipoma and was not identified on the prior exam. There is a 0.4 cm right renal midpole echogenic focus characteristic of a calculus. No hydronephrosis. Limited visualization. LEFT KIDNEY: 11.2 x 6.5 x 4.9 cm (SAG x AP x TRV). No hydronephrosis. No renal calculi. Limited visualization. IMPRESSION: ? 1. Right renal 0.3 cm mid pole echogenic cortical focus may represent a mass such as an angiomyolipoma and was not identified on the prior exam. ? 2. There is a 0.4 cm right renal midpole echogenic focus characteristic of a calculus. No hydronephrosis. Assessment & Plan Assessment & Plan (1) Nephrolithiasis: Code(s): N20.0 - Calculus of kidney (2) Renal calculi: Code(s): N20.0 - Calculus of kidney (3) Angiolipoma: Code(s): D17.9 - Benign lipomatous neoplasm, unspecified Plan Recent renal imaging results reviewed with the patient today; as noted above. Patient denies any urinary issues or concerns at this time. She is happy with current voiding parameters. Discussed, educated, and encouraged on the importance of drinking plenty of water daily. Continue vitamin B6 50 mg daily as discussed and prescribed. Continue adding 1 oz of lemon juice to water daily. Discussed at length potential causes for nephrolithiasis. Renal ultrasound in 1 year for surveillance monitoring of angiolipoma nephrolithiasis Follow-up in 1 year with imaging to be completed prior; or sooner with any issues, concerns, and or questions. Orders: Orders US renal BI 364 Days N20.0 - Calculus of kidney Patient Instructions: The patient had an opportunity to ask questions regarding the treatment plan. All questions were answered. Physical exam, labs, and imaging were discussed and reviewed in detail. As well as risks, benefits, and discussion of treatment choices. No major barriers to understanding were identified. The patient expressed understanding and agreement with the above treatment plan. The patient was made aware they should contact our office by phone for worsening of their current condition, the appearance of new symptoms, or with any questions or concerns. Compliance is encouraged with any medications and follow up testing that is ordered. It is a privilege to be allowed the opportunity to participate in? your urological care.? Again, if you have any questions or concerns If you have any questions or concerns please do not hesitate to contact me. The office is [phone]. This note is constructed using voice recognition software. While every effort has been made to ensure accuracy melting operator errors may have been included. Yours sincerely, GERA Stockton- Telehealth Telehealth Location of provider rendering services: practice address Location of patient: address on file Patient Identification confirmed using: Name, : Yes Telehealth method: video Patient verbally consented to treatment: Yes Patient verbally consented to billing insurance company: Yes Patient informed of any privacy concerns related to visit: Yes Minutes spent on Phone/Video with Pt.: 15 Coding Level of Care Code Tele Est Pt Level 3 (75985) Diagnoses Nephrolithiasis N20.0 Angiolipoma D17.9
== END 2022-11-04 16:09 | disposition home or self-care (01) ==
LOC: HO.HUSH 13:33
PROVIDERS: PCP Internal Medicine; Visit Provider Nurse Practitioner Family
DX: N20.0 Calculus of kidney (principal); D17.9 Benign lipomatous neoplasm, unspecified
CPT/HCPCS: 99213

== ENCOUNTER 2022-11-25 11:12 | Outpatient (AMB) | payer OTHER, SELFPAY ==
[2022-11-25 11:28] VITALS: BP 106/64; PULSE 90; O2SAT 97; BMI 49.3
--- NOTE | 2022-11-25 11:28 | A.OFFPC_ITS ---
Vital Signs 11/25/22 11:28 Height 5 ft 1 in Weight 261 lb BMI 49.3 BP 106/64 Blood Pressure Location Rt brachial Position Sitting Pulse 90 Pulse Source Pulse Oximeter Pulse Oximetry (%) 97 Oxygen Delivery Method Room Air Intake Visit Reasons: 5-6 week Follow up anxiety Intake Note: Pt is here today for 5-6 weeks follow up visit on amxiety. Allergies naproxen [NAPROXEN] Allergy (Severe, Verified 11/25/22 11:34) ANAPHALYXIS codeine [CODEINE] Allergy (Intermediate, Verified 11/25/22 11:34) RASH Penicillins [PCN] Allergy (Intermediate, Verified 11/25/22 11:34) UNKNOWN penicillin V Allergy (Unknown, Verified 11/25/22 11:34) Unknown liquid codeine Allergy (Mild, Uncoded 11/25/22 11:34) Rash penicillin Allergy (Mild, Uncoded 11/25/22 11:34) hives Fiomlmr-Taxfhvrgtinehybm-HCHU Allergy (Unknown, Uncoded 11/25/22 11:34) Unknown naproxen Adverse Reaction (Severe, Uncoded 11/25/22 11:34) Anaphylaxis Medication List - Last Reconciled 11/25/22 by Avelina Live MD acetaminophen 650 mg PO Q6H albuterol sulfate 90 mcg/actuation 2 puffs inhalation 6XD cetirizine (Zyrtec) 10 mg PO DAILY PRN fluticasone propionate 44 mcg/actuation (Flovent HFA) 2 puffs inhalation BID gabapentin 300 mg PO BID multivitamin (Daily Multi-Vitamin tablet) 1 tab PO DAILY [probiotic PO] sertraline (Zoloft) 50 mg PO DAILY Tobacco use date assessed: 10/17/22 HPI 5-6 week Follow up anxiety HPI Details Pt presents for f/u of anxiety , better on Zoloft. Asthma is stable PFSH Medical History Renal calculi Breast pain Hot flashes Overweight Annual physical exam DJD (degenerative joint disease) Endometriosis Surgical History S/P hysterectomy Family History Father No problems noted. Mother No problems noted. Social History Housing: House Alcohol intake: current Alcohol intake frequency: holidays/special occasions only Patient Tobacco Use Status: Never used Tobacco e-Cigarette/Vaping Use: Never Used Current occupational status: employed Cognitive needs: No Hearing needs: No Vision needs: No Questionnaire Thrive Questionnaire Date Thrive assessed: 10/15/21 CLINTON-7 AMB Questionnaire CLINTON-7 Date CLINTON - 7 assessed: 10/15/21 Source: Developed by Drs. Pavan Law, Blank Sumner, Scott Fragoso and colleagues, with an educational adonay from [employer]. Review of Systems Const All systems reviewed & are unremarkable except as noted in HPI and below Reports no additional complaints Eyes Reports no additional complaints ENT Reports no additional complaints Card Reports no additional complaints Resp Reports no additional complaints GI Reports no additional complaints Reports no additional complaints Physical exam (Primary Care) Vital Signs: Last Vital Signs Pulse 90 11/25/22 11:28 BP 106/64 11/25/22 11:28 Pulse Ox 97 11/25/22 11:28 Oxygen Delivery Method Room Air 11/25/22 11:28 BMI result Body Mass Index 49.3 Tobacco/Smoking Status: Tobacco use Status Tobacco use date assessed 10/17/22 11/25/22 11:29 Patient Tobacco Use Status Never used Tobacco 11/25/22 11:29 e-Cigarette/Vaping Use Never Used 11/25/22 11:29 Thrive Assessment: Date of Thrive Assessment Date Thrive assessed 10/15/21 11/25/22 11:29 Const General: no acute distress HENMT Face and sinus: Yes normal facial exam Resp Effort & Inspection: normal respiratory effort Auscultation: clear to auscultation bilaterally Cardio Rhythm: regular rhythm Heart sounds: S1 normal heart sound present and S2 normal heart sound present Assessment and Plan Assessment & Plan (1) Anxiety and depression: Code(s): F41.9 - Anxiety disorder, unspecified; F32.A - Depression, unspecified Plan: Continue Zoloft patient will be starting counseling (2) Asthma: Code(s): J45.909 - Unspecified asthma, uncomplicated Plan: Continue inhalers (3) Overweight: Code(s): E66.3 - Overweight Plan: Weight loss discussed with the patient , she will return in 6 months with fasting labs before Orders: Orders Comprehensive [place]. Panel Fast 6 Months F32.A - Depression, unspecified, F41.9 - Anxiety disorder, unspecified, J45.909 - Unspecified asthma, uncomplicated, Z00.00 - Encounter for general adult medical examination without abnormal findings Complete Blood Count Auto Diff 6 Months F32.A - Depression, unspecified, F41.9 - Anxiety disorder, unspecified, J45.909 - Unspecified asthma, uncomplicated, Z00.00 - Encounter for general adult medical examination without abnormal findings Lipid Panel 6 Months F32.A - Depression, unspecified, F41.9 - Anxiety disorder, unspecified, J45.909 - Unspecified asthma, uncomplicated, Z00.00 - Encounter for general adult medical examination without abnormal findings TSH reflex Free T4 6 Months F32.A - Depression, unspecified, F41.9 - Anxiety disorder, unspecified, J45.909 - Unspecified asthma, uncomplicated, Z00.00 - Encounter for general adult medical examination without abnormal findings Medications: Changed From sertraline (Zoloft) 1/2 tabl qd for 1 week, then 1 tabl qd 50 mg PO DAILY 90 tabs 1RF To sertraline (Zoloft) 50 mg PO DAILY 90 tabs 1RF Coding Level of Care Code Est Pt Level 3 (89605) Diagnoses Anxiety and depression F41.9; F32.A Asthma J45.909 Overweight E66.3
== END 2022-11-25 12:06 | disposition home or self-care (01) ==
PROVIDERS: PCP Internal Medicine; Visit Provider Internal Medicine
DX: F41.9 Anxiety disorder, unspecified (principal); F32.A Depression, unspecified; J45.909 Unspecified asthma, uncomplicated; E66.3 Overweight
CPT/HCPCS: 99213

== ENCOUNTER 2023-01-11 08:37 | Outpatient (AMB) | payer OTHER, SELFPAY ==
--- NOTE | 2023-01-11 08:59 | AM.OFFWIN_ITS ---
Intake Vital Signs 01/11/23 09:01 Height 5 ft 1 in Weight 262 lb BMI 49.5 BP 130/78 Blood Pressure Location Rt brachial Position Sitting Pulse 71 Pulse Source Pulse Oximeter Temp 98.4 F Temp Source Temporal Artery Scan Pulse Oximetry (%) 98 Oxygen Delivery Method Room Air Intake Visit Reasons: EST/WC/left leg inj Intake Note: Pt is here c/o left leg injury. Pt states she skipped a step and felt a pop and burn since 01/09/23. Patient Tobacco Use Status: Never used Tobacco Allergies naproxen [NAPROXEN] Allergy (Severe, Verified 01/11/23 08:59) ANAPHALYXIS codeine [CODEINE] Allergy (Intermediate, Verified 01/11/23 08:59) RASH Penicillins [PCN] Allergy (Intermediate, Verified 01/11/23 08:59) UNKNOWN penicillin V Allergy (Unknown, Verified 01/11/23 08:59) Unknown liquid codeine Allergy (Mild, Uncoded 01/11/23 08:59) Rash penicillin Allergy (Mild, Uncoded 01/11/23 08:59) hives Uhsdntc-Cyexobmtqhgzlihq-QNZN Allergy (Unknown, Uncoded 01/11/23 08:59) Unknown naproxen Adverse Reaction (Severe, Uncoded 01/11/23 08:59) Anaphylaxis Do you need a note to return to daycare/school/sports/work: No HPI EST/WC/left leg inj HPI Details 42-year-old female patient presents toda y for a left lower leg injury. This occurred 2 days ago on 01/09 while at work. She states she was walking down the stairs, and felt a pop/strain in her left calf. She denies falling. She denies any twisting of her ankle. She reports lower calf area has been sore when walking since then. Denies any swelling, redness, tenderness to palpation. Patient reports she has been elevating leg and applying ice. She also has been taking Motrin with some mild relief. [facility] Medical History Renal calculi Breast pain Hot flashes Overweight Annual physical exam DJD (degenerative joint disease) Endometriosis Surgical History S/P hysterectomy Family History Father No problems noted. Mother No problems noted. Social History Housing: House Alcohol intake: current Alcohol intake frequency: holidays/special occasions only Patient Tobacco Use Status: Never used Tobacco e-Cigarette/Vaping Use: Never Used Current occupational status: employed Cognitive needs: No Hearing needs: No Vision needs: No Review of Systems Const All systems reviewed & are unremarkable except as noted in HPI and below Physical Exam Vital Signs: Last Vital Signs Temp 98.4 F 01/11/23 09:01 Pulse 71 01/11/23 09:01 BP 130/78 01/11/23 09:01 Pulse Ox 98 01/11/23 09:01 Oxygen Delivery Method Room Air 01/11/23 09:01 BMI result Body Mass Index 49.5 Const General: cooperative, healthy appearing and no acute distress Resp Effort & Inspection: normal respiratory effort and able to speak in complete sentences Skin General skin exam: no rashes or lesions noted Extrem Other: Left lower extremity with full range of motion a knee/ankle. Negative Homans sign. No erythema, swelling, warmth, or tenderness to palpation on exam. Patient reports tenderness mostly with activity. Normal cap refill, no edema. General: Yes full ROM, Yes capillary refill normal, Yes no joint enlargement and Yes no clubbing, cyanosis or edema Psych Appearance: grossly normal Mental Status: mental status grossly normal Speech and movement: Normal speech and movement present Assessment & Plan Assessment & Plan (1) Strain of left calf muscle: Code(s): S86.812A - Strain of other muscle(s) and tendon(s) at lower leg level, left leg, initial encounter Plan: Likely strain of left calf muscle. Advised rest, ice, elevation, NSAIDs. She reports having Meloxicam for prior injury which worked well. I will refill this. We reviewed indications, use, possible side effects of this. If she does not improve with conservative measures, or if pain worsens/new symptoms develop such as redness, tenderness, swelling, she should return to the clinic or emergency department for further evaluation. Work note provided/in flare paperwork completed. Patient verbalizes understanding and agrees to plan. Medications: New meloxicam 7.5 mg PO DAILY 7 tabs 0RF 7 days S86.812A - Strain of other muscle(s) and tendon(s) at lower leg level, left leg, initial encounter Coding Level of Care Code Est Pt Level 3 (59012) Diagnoses Strain of left calf muscle S86.812A
[2023-01-11 09:01] VITALS: BP 130/78; PULSE 71; TEMP 36.9; O2SAT 98; BMI 49.5
== END 2023-01-11 09:58 | disposition home or self-care (01) ==
PROVIDERS: PCP Internal Medicine; Visit Provider Nurse Practitioner Family
DX: S86.812A Strain of other muscle(s) and tendon(s) at lower leg level, left leg, initial encounter (principal)
CPT/HCPCS: 99213

== ENCOUNTER 2023-04-27 09:53 | Outpatient (AMB) | payer OTHER, SELFPAY ==
[2023-04-27 10:06] VITALS: BP 124/76; PULSE 82; O2SAT 96; BMI 48.9
--- NOTE | 2023-04-27 10:06 | MHC.PC.OV ---
Vital Signs 04/27/23 10:06 Height 5 ft 1 in Weight 259 lb BMI 48.9 BP 124/76 Blood Pressure Location Lt brachial Position Sitting Pulse 82 Pulse Source Pulse Oximeter Pulse Oximetry (%) 96 Oxygen Delivery Method Room Air Intake Visit Reasons: 5 month follow up Intake Note: Pt is here today for 5 months follow up visit. Allergies naproxen [NAPROXEN] Allergy (Severe, Verified 04/27/23 10:09) ANAPHALYXIS codeine [CODEINE] Allergy (Intermediate, Verified 04/27/23 10:09) RASH Penicillins [PCN] Allergy (Intermediate, Verified 04/27/23 10:09) UNKNOWN penicillin V Allergy (Unknown, Verified 04/27/23 10:09) Unknown liquid codeine Allergy (Mild, Uncoded 04/27/23 10:09) Rash penicillin Allergy (Mild, Uncoded 04/27/23 10:09) hives Ydzzwlt-Njaaaxaiitdujpmd-DXYH Allergy (Unknown, Uncoded 04/27/23 10:09) Unknown naproxen Adverse Reaction (Severe, Uncoded 04/27/23 10:09) Anaphylaxis Medication List - Last Reconciled 04/27/23 by Avelina Live MD acetaminophen 650 mg PO Q6H albuterol sulfate 90 mcg/actuation 2 puffs inhalation 6XD cetirizine (Zyrtec) 10 mg PO DAILY PRN fluticasone propionate 44 mcg/actuation (Flovent HFA) 2 puffs inhalation BID gabapentin 300 mg PO BID meloxicam 7.5 mg PO DAILY 7 days multivitamin (Daily Multi-Vitamin tablet) 1 tab PO DAILY [probiotic PO] sertraline (Zoloft) 50 mg PO DAILY Tobacco use date assessed: 04/27/23 Dental Screening Dental Screen Date: 04/27/23 Did you have a dental visit in the last 12 months?: Yes Did you have a dental problem in the last 6 months where you did not have access to dental care?: No Was dental information given to patient?: Patient has dentist HPI 5 month follow up HPI Details Patient presents for the follow-up of anxiety and chronic lower back pain. Her anxiety slightly better on Zoloft patient follows up with a counselor. She has been getting cortisone injection for her chronic lower back pain and has been taking gabapentin with meloxicam with some relief. patient complains of sore tongue for a few weeks [facility] Medical History Renal calculi Breast pain Hot flashes Overweight Annual physical exam DJD (degenerative joint disease) Endometriosis Surgical History S/P hysterectomy Family History Father No problems noted. Mother No problems noted. Social History Housing: House Alcohol intake: current Alcohol intake frequency: holidays/special occasions only Patient Tobacco Use Status: Never used Tobacco e-Cigarette/Vaping Use: Never Used Current occupational status: employed Cognitive needs: No Hearing needs: No Vision needs: No Questionnaire PHQ-9 Over the last 2 weeks, how often have you been bothered by any of the following problems? 1. Little interest or pleasure in doing things: more than half the days 2. Feeling down, depressed, or hopeless: several days 3. Trouble falling or staying asleep, or sleeping too much: nearly every day 4. Feeling tired or having little energy: more than half the days 5. Poor appetite or overeating: several days 6. Feeling bad about yourself - or that you are a failure or have let yourself or your family down: several days 7. Trouble concentrating on things, such as reading the newspaper or watching television: more than half the days 8. Moving or speaking so slowly that other people could have noticed. Or the opposite - being so fidgety or restless that you have been moving around a lot more than usual: not at all 9. Thoughts that you would be better off or of hurting yourself in some way: not at all Total score: 12 Depression Screening Interpretation: Positive Depression Screening Done: Yes 21243 - PHQ-9 Billing: Yes Source: Developed by Drs. Pavan Law, Blank Sumner, Scott Fragoso and colleagues, with an educational adonay from [employer]. Thrive Questionnaire Date Thrive assessed: 04/27/23 I am a: Patient What is your living situation today?: I have a steady place to live Within the past 12 months, did the food you bought not last and you didn't have the money to get more?: Never true Within the past 12 months, did you worry whether your food would run out before you got money to buy more?: Never true Do you have trouble paying for medicines?: No Do you have trouble getting transportation to medical appointments?: No Do you have trouble paying your heating and electricity bill?: No Do you have trouble taking care of your child, family member or friend?: No Do you have trouble with day-to-day activities such as bathing, preparing meals, shopping, managing finances, etc.?: No Are you currently unemployed and looking for a job?: No Are you interested in more education?: No Please select the resources that you would like help with: None Currently or been in a relationship where the following occur: no concerns reported THRIVE Score: 0 AUDIT C Alcohol Use Questionnaire (AUDIT-C) 1. How often do you have a drink containing alcohol?: Monthly or less 2. How many drinks containing alcohol do you have on a typical day when you are drinking?: 1 or 2 3. How often do you have six or more drinks on one occasion?: Never Total Score: 1 CLINTON-7 AMB Questionnaire CLINTON-7 Date CLINTON - 7 assessed: 04/27/23 Feeling nervous, anxious, or on edge: 1 = Several days Not being able to stop or control worryin = More than half the days Worrying too much about different things: 2 = More than half the days Trouble relaxin = More than half the days Being so restless that it is hard to sit still: 2 = More than half the days Becoming easily annoyed or irritable: 1 = Several days Feeling afraid as if something awful might happen: 1 = Several days Total CLINTON-7 score (0-4 normal; 5-9 mild; 10-14 moderate; 15-21 severe): 11 Source: Developed by Drs. Pavan Law, Blank Sumner, Scott Fragoso and colleagues, with an educational adonay from [employer] Review of Systems Const All systems reviewed & are unremarkable except as noted in HPI and below Reports no additional complaints Eyes Reports no additional complaints ENT Reports no additional complaints Card Reports no additional complaints Resp Reports no additional complaints GI Reports no additional complaints Reports no additional complaints Physical exam (Primary Care) Vital Signs: Last Vital Signs Pulse 82 04/27/23 10:06 BP 124/76 04/27/23 10:06 Pulse Ox 96 04/27/23 10:06 Oxygen Delivery Method Room Air 04/27/23 10:06 BMI result Body Mass Index 48.9 Tobacco/Smoking Status: Tobacco use Status Tobacco use date assessed 04/27/23 04/27/23 10:13 Patient Tobacco Use Status Never used Tobacco 04/27/23 10:13 e-Cigarette/Vaping Use Never Used 04/27/23 10:08 Depression Screening Interpretation: Positive Thrive Assessment: Date of Thrive Assessment Date Thrive assessed 10/15/21 04/27/23 10:08 Currently or been in a relationship where the following occur: no concerns reported Const General: no acute distress HENMT Head: Yes normal to inspection Mouth: Normal oral and palatal mucosa present, lip normal, tongue normal, Normal salivary glands and ducts present and oropharynx normal Throat: Yes posterior oropharynx normal Eyes General: appearance normal, both eyes and all related structures Neck Neck: Yes no lymphadenopathy and Yes supple Resp Effort & Inspection: normal respiratory effort Auscultation: clear to auscultation bilaterally Cardio Rhythm: regular rhythm Heart sounds: S1 normal heart sound present and S2 normal heart sound present Back/Spine/Pelvis Other: Slightly decreased range of motion lower back, straight leg rising 90 degrees bilaterally Assessment and Plan Assessment & Plan (1) Annual physical exam: Code(s): Z00.00 - Encounter for general adult medical examination without abnormal findings (2) Anxiety and depression: Code(s): F41.9 - Anxiety disorder, unspecified; F32.A - Depression, unspecified Plan: Continue Zoloft and counseling, mindfullness and regular physical activity discussed with the patient. (3) DJD (degenerative joint disease): Comment: L spine , f/u with [facility] Code(s): M19.90 - Unspecified osteoarthritis, unspecified site Plan: Follow-up with [place] [facility] continue gabapentin and meloxicam. Lower back exercises yoga and swimming were recommended Orders: Orders Vitamin B12 and Folate Today Z00.00 - Encounter for general adult medical examination without abnormal findings Vitamin D 25-OH Total Today Z00.00 - Encounter for general adult medical examination without abnormal findings Comprehensive [place]. Panel Fast Today Z00.00 - Encounter for general adult medical examination without abnormal findings Medications: Refilled albuterol sulfate 90 mcg/actuation 2 puffs inhalation 6XD 8.5 grams 1RF Coding Level of Care Code Est Pt Level 4 (85533) Diagnoses Annual physical exam Z00.00 Anxiety and depression F41.9; F32.A DJD (degenerative joint disease) M19.90
== END 2023-04-27 10:50 | disposition home or self-care (01) ==
PROVIDERS: PCP Internal Medicine; Visit Provider Internal Medicine
DX: F41.9 Anxiety disorder, unspecified (principal); F32.A Depression, unspecified; M19.90 Unspecified osteoarthritis, unspecified site
CPT/HCPCS: 99214

== ENCOUNTER 2023-04-27 10:40 | Outpatient (REF) | payer OTHER, SELFPAY ==
[2023-04-27 13:16] LABS: MANUAL DIFF FLAG NO
[2023-04-27 13:32] LABS: Basophils Absolute Auto 0.1 X10*3/uL (0.0-0.2); Eosinophils Absolute Auto 0.3 X10*3/uL (0.0-0.4); Eosinophils Percent Auto 3.6 % (0-4); Hematocrit 43.4 % (37.0-47.0); Hemoglobin 14.6 g/dl (12.0-16.0); Imm Gran Abs Auto 0.05 X10*3/uL (0.00-0.03); Imm Gran Pct Auto 0.5 % (0.0-0.4); Lymphocytes Absolute Auto 1.7 X10*3/uL (1.2-4.9); Lymphocytes Percent Auto 18.5 % (20-40); Mean Corpuscular HGB Conc 33.6 g/dl (31.0-35.0); Mean Corpuscular Hemoglobin 29.6 pg (27.0-33.0); Mean Corpuscular Volume 87.9 fL (80.0-98.0); Mean Platelet Volume 10.5 fL (9.4-12.3); Monocytes Absolute Auto 0.6 X10*3/uL (0.1-1.2); Monocytes Percent Auto 6.8 % (2-11); Neutrophils Absolute Auto 6.6 x10*3/uL (2.0-8.3); Neutrophils Percent Auto 69.6 % (45-73); Platelet Count 324 X10*3/uL (160-400); Red Blood Count 4.94 X10*6/uL (4.20-5.50); White Blood Count 9.4 X10*3/uL (4.8-10.8)
[2023-04-27 14:11] LABS: TSH reflex Free T4 1.66 uIU/mL (0.32-4.0); Vitamin D 25-OH Total 40.1 ng/mL (>30)
[2023-04-27 14:20] LABS: Folate 10.5 ng/mL (> or = 4.0); Vitamin B12 438 pg/mL (200-900)
== END 2023-04-27 10:41 | disposition home or self-care (01) ==
LOC: HO.HMGCLDS 10:40
PROVIDERS: PCP Internal Medicine; Visit Provider Internal Medicine
DX: Z00.00 Encounter for general adult medical examination without abnormal findings (principal); F41.9 Anxiety disorder, unspecified; F32.A Depression, unspecified; J45.909 Unspecified asthma, uncomplicated
CPT/HCPCS: 36415; 82306; 82607; 82746; 84443; 85025

== ENCOUNTER → 2023-05-29 08:12 | Outpatient (AMB) | payer OTHER, SELFPAY ==
[2023-05-29 08:45] VITALS: BP 130/80; PULSE 80; O2SAT 98; BMI 49.3
--- NOTE | 2023-05-29 08:45 | MHC.OFFWIV ---
Intake Vital Signs 05/29/23 08:45 Height 5 ft 1 in Weight 261 lb BMI 49.3 BP 130/80 Blood Pressure Location Rt brachial Position Sitting Pulse 80 Pulse Source Pulse Oximeter Pulse Oximetry (%) 98 Oxygen Delivery Method Room Air Intake Visit Reasons: EP RT side lower AB pain Intake Note: Pt is here c/o right side abdominal pain since this morning. Patient Tobacco Use Status: Never used Tobacco Allergies naproxen [NAPROXEN] Allergy (Severe, Verified 05/29/23 08:55) ANAPHALYXIS codeine [CODEINE] Allergy (Intermediate, Verified 05/29/23 08:55) RASH Penicillins [PCN] Allergy (Intermediate, Verified 05/29/23 08:55) UNKNOWN penicillin V Allergy (Unknown, Verified 05/29/23 08:55) Unknown liquid codeine Allergy (Mild, Uncoded 05/29/23 08:55) Rash penicillin Allergy (Mild, Uncoded 05/29/23 08:55) hives Bqciyzr-Supjildcuvqpkiad-TBKW Allergy (Unknown, Uncoded 05/29/23 08:55) Unknown naproxen Adverse Reaction (Severe, Uncoded 05/29/23 08:55) Anaphylaxis Do you need a note to return to daycare/school/sports/work: Yes HPI EP RT side lower AB pain HPI Details 43-year-old female presents to the office for a sick visit. Patient is reporting pain in the right lower abdomen since this morning and progressively is getting worse. Pain is mostly in the right inguinal area and radiating to the left side. She has had history of a kidney stone in the past. Was seeing a urologist, no interventions have been done. [facility] Medical History Renal calculi Breast pain Hot flashes Overweight Annual physical exam DJD (degenerative joint disease) Endometriosis Surgical History S/P hysterectomy Family History Father No problems noted. Mother No problems noted. Social History Housing: House Alcohol intake: current Alcohol intake frequency: holidays/special occasions only Patient Tobacco Use Status: Never used Tobacco e-Cigarette/Vaping Use: Never Used Current occupational status: employed Cognitive needs: No Hearing needs: No Vision needs: No Physical Exam Vital Signs: Last Vital Signs Pulse 80 05/29/23 08:45 BP 130/80 05/29/23 08:45 Pulse Ox 98 05/29/23 08:45 Oxygen Delivery Method Room Air 05/29/23 08:45 BMI result Body Mass Index 49.3 Const General: cooperative and healthy appearing Nutritional Appearance: well nourished Orientation/consciousness: patient oriented x3 Limitations: no limitations HEENT Head: Yes normal to inspection Eyes General: appearance normal, both eyes and all related structures Neck Neck: Yes normal visual inspection Chest Chest palpation & inspection: normal palpation of entire chest wall Resp Effort & Inspection: normal respiratory effort GI Other: Bowel sounds heard over all quadrants. Abdomen: Minimal discomfort in the right lower quadrant. No rebound tenderness. Neuro General: patient oriented x3 Results AMB Urinalysis, Automated UA Leukoctes 0 Ar/uL Last Edit by Rhona Winter CMA on 05/29/23 09:09 UA Nitrite Negative Last Edit by Rhona Winter CMA on 05/29/23 09:09 UA Urobilinogen 0.2 mg/dL Last Edit by Rhona Winter CMA on 05/29/23 09:09 UA Protein 0 mg/dL Last Edit by Rhona Winter CMA on 05/29/23 09:09 UA pH 6.0 Last Edit by Rhona Winter CMA on 05/29/23 09:09 UA Blood 10 Duglas/uL Last Edit by Rhona Winter CMA on 05/29/23 09:09 UA Specific Ericson 1.020 Last Edit by Rhona Winter CMA on 05/29/23 09:09 UA Ketone Negative Last Edit by Rhona Winter CMA on 05/29/23 09:09 UA Bilirubin 0 mg/dL Last Edit by Rhona Winter CMA on 05/29/23 09:09 UA Glucose 0 mg/dL Last Edit by Rhona Winter CMA on 05/29/23 09:09 Assessment & Plan Assessment & Plan (1) Abdominal pain: Code(s): R10.9 - Unspecified abdominal pain Plan: Urinalysis positive for blood. Diagnostic possibilities include kidney stone, UTI or an acute appendix. Blood work has been ordered. Will call with the results. Anti-inflammatory and antibiotics called in. If symptoms are getting worse to proceed to the emergency room. Orders: Orders AMB Urinalysis Automated Today Z13.9 - Encounter for screening, unspecified Coding Level of Care Code Est Pt Level 4 (33031) Diagnoses Abdominal pain R10.9
== END ==
PROVIDERS: PCP Internal Medicine; Visit Provider Internal Medicine
DX: R10.9 Unspecified abdominal pain (principal)
CPT/HCPCS: 81003; 99214

== ENCOUNTER 2023-05-29 09:19 | Outpatient (REF) | payer OTHER, SELFPAY ==
[2023-05-29 11:39] LABS: Hematocrit 43.8 % (37.0-47.0); Hemoglobin 14.4 g/dl (12.0-16.0); Mean Corpuscular HGB Conc 32.9 g/dl (31.0-35.0); Mean Corpuscular Hemoglobin 29.3 pg (27.0-33.0); Mean Platelet Volume 10.2 fL (9.4-12.3); Platelet Count 299 X10*3/uL (160-400); Red Blood Count 4.92 X10*6/uL (4.20-5.50); Red Cell Distribution Width 13.1 % (11.0-16.0); White Blood Count 5.8 X10*3/uL (4.8-10.8)
[2023-05-29 12:44] LABS: Erythrocyte Sedimentation Rate 22 MM/HR (0-20)
[2023-05-29 13:10] LABS: Alanine Aminotransferase 25 U/L (0-31); Albumin Level 4.2 g/dL (3.5-5.0); Alkaline Phosphatase 72 U/L (39-117); Anion Gap 11 (12-20); Aspartate Amino Transferase 17 U/L (5-31); Bilirubin Direct 0.1 mg/dL (0.0-0.5); Bilirubin Total 0.4 mg/dL (0.0-1.0); Blood Urea Nitrogen 13 mg/dL (9-16); Calcium 9.6 mg/dL (8.4-10.2); Carbon Dioxide 26 mmol/L (22-29); Chloride 108 mmol/L (96-108); Estimated Glomerular Filt Rate > 60; Glucose Random 94 mg/dL (60-115); Potassium 4.3 mmol/L (3.3-5.1); Sodium 141 mmol/L (135-145); Total Protein 7.5 g/dL (6.5-8.0)
== END 2023-05-29 09:20 | disposition home or self-care (01) ==
LOC: HO.HMGCLDS 09:19
PROVIDERS: PCP Internal Medicine; Visit Provider Internal Medicine
DX: R10.9 Unspecified abdominal pain (principal)
CPT/HCPCS: 36415; 80048; 80076; 85027; 85652

== ENCOUNTER 2023-05-31 16:00 | Outpatient (REF) | payer OTHER, SELFPAY ==
--- NOTE | ~2023-05-31 | XR_ITS ---
EXAMINATION: XR ABDOMEN KUB CLINICAL INDICATION: Calculus of kidney, rule out obstructing stone. COMPARISON: Renal ultrasound of 11/04/2022. TECHNIQUE: AP view of the abdomen. FINDINGS: 4 mm calculus overlies the midpole of the right kidney with possible tiny 2 mm lower pole calculus. Possible 3 mm calculus overlying lower pole of left kidney. Limited visualization due to overlying bowel. Nonobstructive bowel gas pattern. Degenerative changes in the spine. Tiny pelvic calcifications are likely vascular. XR/XR KUB IMPRESSION: Bilateral renal calculi.
== END 2023-05-31 16:01 | disposition home or self-care (01) ==
LOC: HO.XRAY 16:00
PROVIDERS: PCP Internal Medicine; Visit Provider Nurse Practitioner Family
DX: N20.0 Calculus of kidney (principal)
CPT/HCPCS: 74018

== ENCOUNTER 2023-06-14 14:25 | Outpatient (AMB) | payer OTHER, SELFPAY ==
[2023-06-14 14:32] VITALS: BP 122/86; PULSE 87; TEMP 36.8; O2SAT 96; BMI 50.1
--- NOTE | 2023-06-14 14:32 | AM.OFFWIN_ITS ---
Intake Vital Signs 06/14/23 14:32 Height 5 ft 1 in Weight 265 lb 6 oz BMI 50.1 BP 122/86 Blood Pressure Location Lt brachial Position Sitting Pulse 87 Pulse Source Pulse Oximeter Temp 98.3 F Temp Source Oral Pulse Oximetry (%) 96 Oxygen Delivery Method Room Air Intake Visit Reasons: EP ?Thrush Intake Note: Pt presents to the office today for c/o white on her tongue. She states she thinks it may be thrush. She states it don and hurts. Patient Tobacco Use Status: Never used Tobacco Allergies naproxen [NAPROXEN] Allergy (Severe, Verified 06/14/23 14:35) ANAPHALYXIS codeine [CODEINE] Allergy (Intermediate, Verified 06/14/23 14:35) RASH Penicillins [PCN] Allergy (Intermediate, Verified 06/14/23 14:35) UNKNOWN penicillin V Allergy (Unknown, Verified 06/14/23 14:35) Unknown liquid codeine Allergy (Mild, Uncoded 06/14/23 14:35) Rash penicillin Allergy (Mild, Uncoded 06/14/23 14:35) hives Gsudofb-Qdiewicylrvjetro-YAWU Allergy (Unknown, Uncoded 06/14/23 14:35) Unknown naproxen Adverse Reaction (Severe, Uncoded 06/14/23 14:35) Anaphylaxis HPI HPI Comments History of Present Illness Details Patient is a 43yo F who presents with concern thrush She was seen in April by PCP and had mouth complaint but no oral findings She said worsening burning discomfort in mouth and tongue + white patches Tried gargle with hydrogen peroxide and water without relief Has good dental regimen and has tried Biotin without relief She denies fever or chills No inability to swallow Denies hx diabetes, using inhaler. Was on antibiotics recently but no other known possible cause PFSH Medical History Renal calculi Breast pain Hot flashes Overweight Annual physical exam DJD (degenerative joint disease) Endometriosis Surgical History S/P hysterectomy Family History Father No problems noted. Mother No problems noted. Social History Housing: House Alcohol intake: current Alcohol intake frequency: holidays/special occasions only Patient Tobacco Use Status: Never used Tobacco e-Cigarette/Vaping Use: Never Used Current occupational status: employed Cognitive needs: No Hearing needs: No Vision needs: No Review of Systems Const Denies chills and Denies fever(s) ENT Denies dental pain, Reports dry mouth, Reports mouth lesions, Reports mouth pain, Reports sore throat, Denies throat swelling and Denies tongue swelling Card Denies chest pain and Denies dyspnea Resp Denies cough and Denies dyspnea Denies abnormal menses Aller/Immun Denies throat swelling and Denies tongue swelling Physical Exam Vital Signs: Last Vital Signs Temp 98.3 F 06/14/23 14:32 Pulse 87 06/14/23 14:32 BP 122/86 06/14/23 14:32 Pulse Ox 96 06/14/23 14:32 Oxygen Delivery Method Room Air 06/14/23 14:32 BMI result Body Mass Index 50.1 General: Non-toxic, NAD. Speaking full sentences. Skin: Warm dry throughout Eye: EOMI HENT: Airway patent. Uvula midline. No pharyngeal erythema or edema. 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 Tongue has + white unscrapable patches. No lesions to lateral mucosa, roof or floor of mouth. No lesions to posterior pharynx Respiratory: No respiratory distress Cardiac: RRR Neurology: A/O. No aphasia or facial droop. Gait without abnormality Psych: Good mood and affect Assessment & Plan Assessment & Plan (1) Thrush: Code(s): B37.0 - Candidal stomatitis Plan: Patient seen and evaluated. Nystatin rinse to pharmacy Call PCP for 1 week f/u if not improved ER if inability to swallow Patient gave verbal understanding and had no additional questions or concerns at time of discharge All questions answered Medications: New 2 nystatin swish and retain approx 30 seconds and spit 5 mL PO QID 140 mL 0RF 1 week Coding Level of Care Code Est Pt Level 3 (62705) Diagnoses Thrush B37.0
== END 2023-06-14 15:10 | disposition home or self-care (01) ==
PROVIDERS: PCP Internal Medicine; Visit Provider Physician Assistant
DX: B37.0 Candidal stomatitis (principal)
CPT/HCPCS: 99213

== ENCOUNTER 2023-09-05 12:37 | Outpatient (AMB) | payer OTHER, SELFPAY ==
[2023-09-05 13:02] VITALS: BP 122/84; PULSE 81; TEMP 37; O2SAT 98; BMI 50.8
--- NOTE | 2023-09-05 13:02 | AM.OFFWIN_ITS ---
Intake Vital Signs 09/05/23 13:02 Height 5 ft 1 in Weight 269 lb BMI 50.8 BP 122/84 Blood Pressure Location Lt brachial Position Sitting Pulse 81 Pulse Source Pulse Oximeter Temp 98.6 F Temp Source Oral Pulse Oximetry (%) 98 Oxygen Delivery Method Room Air Intake Visit Reasons: EP Sinus infection Intake Note: pt here c/o sinus infection. Red, scratchy throat, body aches, pressure. Symptoms started Saturday 09/02. Patient Tobacco Use Status: Never used Tobacco Allergies naproxen [NAPROXEN] Allergy (Severe, Verified 09/05/23 13:08) ANAPHALYXIS codeine [CODEINE] Allergy (Intermediate, Verified 09/05/23 13:08) RASH Penicillins [PCN] Allergy (Intermediate, Verified 09/05/23 13:08) UNKNOWN penicillin V Allergy (Unknown, Verified 09/05/23 13:08) Unknown liquid codeine Allergy (Mild, Uncoded 09/05/23 13:08) Rash penicillin Allergy (Mild, Uncoded 09/05/23 13:08) hives Enpkbbm-Fwwgudsmlfutvbof-NMXQ Allergy (Unknown, Uncoded 09/05/23 13:08) Unknown naproxen Adverse Reaction (Severe, Uncoded 09/05/23 13:08) Anaphylaxis Do you need a note to return to daycare/school/sports/work: No HPI HPI Comments History of Present Illness Details Patient is a 43-year-old female complaining of 3 days of a scratchy throat, sinus pain, body aches, headaches, postnasal drip and some wheezing. She also endorses a dry cough. She denies any shortness of breath or fevers or sick contacts. She states she has been able to eat and drink normally. To treat her symptoms she has been increasing her fluids, taking airborne and a daily allergy pill that has not had any relief. FORMERLY [facility] Medical History Renal calculi Breast pain Hot flashes Overweight Annual physical exam DJD (degenerative joint disease) Endometriosis Surgical History S/P hysterectomy Family History Father No problems noted. Mother No problems noted. Social History Housing: House Alcohol intake: current Alcohol intake frequency: holidays/special occasions only Patient Tobacco Use Status: Never used Tobacco e-Cigarette/Vaping Use: Never Used Current occupational status: employed Cognitive needs: No Hearing needs: No Vision needs: No Review of Systems Const All systems reviewed & are unremarkable except as noted in HPI and below Physical Exam Vital Signs: Last Vital Signs Temp 98.6 F 09/05/23 13:02 Pulse 81 09/05/23 13:02 BP 122/84 09/05/23 13:02 Pulse Ox 98 09/05/23 13:02 Oxygen Delivery Method Room Air 09/05/23 13:02 BMI result Body Mass Index 50.8 Const General: cooperative, healthy appearing, comfortable and no acute distress Orientation/consciousness: patient oriented x3 Limitations: no limitations HEENT Head: Yes normal to inspection Ears: hearing grossly normal bilaterally, external ears normal and TM's normal bilaterally General nose exam: Normal external nose present, Normal nares present and No nasal discharge present Face and sinus: Yes normal facial exam and Yes sinus tenderness (Maxillary) Mouth: Normal oral and palatal mucosa present and moist mucous membranes Throat: Yes tonsils normal, Yes uvula midline and Yes posterior oropharynx abnormal (Slight erythema) Eyes General: appearance normal, both eyes and all related structures Neck Neck: Yes normal visual inspection Resp Effort & Inspection: normal respiratory effort, able to speak in complete sentences, Actively coughing, no respiratory distress, not tachypneic, no tripod positioning and no use of accessory muscles Auscultation: clear to auscultation bilaterally Cardio Rate: regular rate Rhythm: regular rhythm Heart sounds: normal S1 and S2 Skin General skin exam: no rashes or lesions noted Neuro General: patient oriented x3 Extrem General: Yes normal to inspection and Yes no clubbing, cyanosis or edema Assessment & Plan Assessment & Plan (1) Acute viral sinusitis: Code(s): J01.90 - Acute sinusitis, unspecified; B97.89 - Other viral agents as the cause of diseases classified elsewhere Plan: Recommended Neti pot with distilled water, Flonase used properly, did explain how to use it properly. If she experiences any shortness of breath or worsening of symptoms, she should return for a chest x-ray however lungs are clear today. Prescribed Medrol because patient says she does not react well to prednisone and she usually gets Medrol instead. Plan see above. Orders: Orders SARS-CoV2/FLU/RSV Today J06.9 - Acute upper respiratory infection, unspecified Medications: New methylprednisolone (Medrol) 4 mg PO DAILY 5 tabs 0RF Coding Level of Care Code Est Pt Level 3 (06717) Diagnoses Acute viral sinusitis J01.90; B97.89
== END 2023-09-05 13:40 | disposition home or self-care (01) ==
PROVIDERS: PCP Internal Medicine; Visit Provider Physician Assistant
DX: J01.90 Acute sinusitis, unspecified (principal); B97.89 Other viral agents as the cause of diseases classified elsewhere
CPT/HCPCS: 99213

== ENCOUNTER 2023-09-05 13:21 | Outpatient (REF) | payer OTHER, SELFPAY ==
[2023-09-05 17:16] LABS: Influenza A PCR NEGATIVE (Negative); Influenza B PCR NEGATIVE (Negative); Resp Syncy Virus RNA Qual PCR NEGATIVE (Negative); SARS COV2 PCR INHOUSE NEGATIVE (Negative)
== END 2023-09-05 13:22 | disposition home or self-care (01) ==
LOC: HO.LAB 13:21
PROVIDERS: Visit Provider Physician Assistant
DX: J06.9 Acute upper respiratory infection, unspecified (principal)
CPT/HCPCS: 0241U

== ENCOUNTER 2023-12-14 08:17 | Outpatient (AMB) | payer OTHER, SELFPAY ==
--- NOTE | 2023-12-14 08:23 | MHC.OFFWIV ---
Intake Vital Signs 12/14/23 08:30 12/14/23 08:53 Height 5 ft 1 in Weight 268 lb BMI 50.6 BP 138/90 H Blood Pressure Location Lt brachial Position Sitting BP not taken reason Medical Reason Respiration 12 Pulse 91 Pulse Source Pulse Oximeter Pulse Oximetry (%) 98 Oxygen Delivery Method Simple Mask Intake Visit Reasons: Back pain Intake Note: Patient reports she is in severe pain and pressure in low back x2 days and worsening today, has tried motrin, tylenol and gabapentin and it has not helped. Patient reports it hurts to walk and sit and lay down as well as switching positions. Patient has also tried heat and ice with no relief. Patient has a fmla for her back already, her spine doctor is not currently available and she needed to be seen right away. Note will help assist with fmla already in place. Patient Tobacco Use Status: Never used Tobacco Allergies naproxen [NAPROXEN] Allergy (Severe, Verified 12/14/23 08:40) ANAPHALYXIS codeine [CODEINE] Allergy (Intermediate, Verified 12/14/23 08:40) RASH Penicillins [PCN] Allergy (Intermediate, Verified 12/14/23 08:40) UNKNOWN penicillin V Allergy (Unknown, Verified 12/14/23 08:40) Unknown liquid codeine Allergy (Mild, Uncoded 12/14/23 08:40) Rash penicillin Allergy (Mild, Uncoded 12/14/23 08:40) hives Jvxxgck-Sbjlnwruyrcqilwz-MNTN Allergy (Unknown, Uncoded 12/14/23 08:40) Unknown naproxen Adverse Reaction (Severe, Uncoded 12/14/23 08:40) Anaphylaxis Medication List - Last Reconciled 12/14/23 by Randal Romero, RICARDO albuterol sulfate 90 mcg/actuation 2 puffs inhalation 6XD cetirizine (Zyrtec) 10 mg PO DAILY PRN gabapentin 300 mg PO BID multivitamin (Daily Multi-Vitamin tablet) 1 tab PO DAILY [probiotic PO] Do you need a note to return to daycare/school/sports/work: Yes HPI HPI Comments History of Present Illness Details 43-year-old female, accompanied by her , presents with complaints of acute on chronic low back pain for the past 2 days. Pain radiates to her bilateral lower extremity. She describes the pain as sharp and pressure. Her symptoms have progressively gotten worse. Her pain intensifies with walking, sitting, lying, and changes positions. Ibuprofen, Tylenol, gabapentin, and ice/heat has not provided relief. She denies fall, injury, trauma, or loss of sensation. No tingling or numbness. She notes history of lumbar spine stenosis with unstable joints. She is followed by [facility]. [facility] Medical History Renal calculi Breast pain Hot flashes Overweight Annual physical exam DJD (degenerative joint disease) Endometriosis Surgical History S/P hysterectomy Family History Father No problems noted. Mother No problems noted. Social History Housing: House Alcohol intake: current Alcohol intake frequency: holidays/special occasions only Patient Tobacco Use Status: Never used Tobacco e-Cigarette/Vaping Use: Never Used Current occupational status: employed Cognitive needs: No Hearing needs: No Vision needs: No Review of Systems Const Details: Denies chills, Denies fatigue, Denies fever(s), Denies headache(s) and Denies weakness Cardiac Denies chest pain, Denies claudication, Denies leg edema, Denies lightheadedness, Denies palpitations, Denies dyspnea, Denies dyspnea on exertion, Denies orthopnea and Denies other (Loss of consciousness) Resp Denies cough, Denies excessive phlegm production, Denies dyspnea, Denies dyspnea on exertion, Denies snoring and Denies wheezing Musc Reports as per HPI Physical Exam Vital Signs: Last Vital Signs Pulse 91 12/14/23 08:30 Resp 12 12/14/23 08:30 Pulse Ox 98 12/14/23 08:30 Oxygen Delivery Method Simple Mask 12/14/23 08:30 BMI result Body Mass Index 50.6 Const Other: General: comfortable and no acute distress Orientation/consciousness: patient oriented x3 Chest Chest palpation & inspection: normal inspection of the chest Resp Auscultation: clear to auscultation bilaterally Cardiac Palpation: normal PMI Heart sounds: S1 normal heart sound present, S2 normal heart sound present, no gallops, no murmur, no rubs Musc Lumbar spine tenderness to palpation. Negative straight leg raise bilaterally. No overt injury/trauma Assessment & Plan Assessment & Plan (1) Back pain: Code(s): M54.9 - Dorsalgia, unspecified Plan: Acute on chronic low back pain; progressively worsened the past 2 days Lumbar spine tenderness to palpation. Negative straight leg raise bilaterally. No overt injury/trauma Cyclobenzaprine 10 mg 3 times a day as needed ordered. Advised to take as prescribed. Instructed on the risks, benefits, and potential adverse reactions of the medication May alternate with Tylenol or ibuprofen as needed Warm compresses encouraged Follow-up with orthopedics as planned Verbalized understanding and agreed with treatment plan Medications: New cyclobenzaprine 10 mg PO TID PRN 30 tabs 0RF muscle spasm Coding Level of Care Code Est Pt Level 3 (74353) Diagnoses Back pain M54.9
[2023-12-14 08:30] VITALS: PULSE 91; RESP 12; O2SAT 98; BMI 50.6
[2023-12-14 08:53] VITALS: BP 138/90
== END 2023-12-14 08:59 | disposition home or self-care (01) ==
PROVIDERS: PCP Internal Medicine; Visit Provider Nurse Practitioner Family
DX: M54.9 Dorsalgia, unspecified (principal)

== ENCOUNTER → 2023-12-14 08:17 | Outpatient (BNVA) | payer OTHER, SELFPAY | PROVIDERS: PCP Internal Medicine | DX: M54.50 Low back pain, unspecified (principal); G89.29 Other chronic pain ==

== ENCOUNTER 2023-12-22 11:44 | Outpatient (AMB) | payer OTHER, SELFPAY ==
[2023-12-22 11:48] VITALS: BP 118/76; PULSE 92; O2SAT 97; BMI 51.8
--- NOTE | 2023-12-22 11:48 | A.OFFPC_ITS ---
Vital Signs 12/22/23 11:48 Height 5 ft 1 in Weight 274 lb BMI 51.8 BP 118/76 Blood Pressure Location Lt brachial Position Sitting Pulse 92 Pulse Source Pulse Oximeter Pulse Oximetry (%) 97 Oxygen Delivery Method Room Air Intake Visit Reasons: PE Intake Note: Pt is here today for PE. Allergies naproxen [NAPROXEN] Allergy (Severe, Verified 12/22/23 11:53) ANAPHALYXIS codeine [CODEINE] Allergy (Intermediate, Verified 12/22/23 11:53) RASH Penicillins [PCN] Allergy (Intermediate, Verified 12/22/23 11:53) UNKNOWN penicillin V Allergy (Unknown, Verified 12/22/23 11:53) Unknown liquid codeine Allergy (Mild, Uncoded 12/22/23 11:53) Rash penicillin Allergy (Mild, Uncoded 12/22/23 11:53) hives Rrkyths-Jqjaqgcsljxmptdg-UIPJ Allergy (Unknown, Uncoded 12/22/23 11:53) Unknown naproxen Adverse Reaction (Severe, Uncoded 12/22/23 11:53) Anaphylaxis Medication List - Last Reconciled 12/22/23 by Avelina Live MD albuterol sulfate 90 mcg/actuation 2 puffs inhalation 6XD cetirizine (Zyrtec) 10 mg PO DAILY PRN cyclobenzaprine 10 mg PO TID PRN gabapentin 300 mg PO BID multivitamin (Daily Multi-Vitamin tablet) 1 tab PO DAILY [probiotic PO] Tobacco use date assessed: 12/22/23 Dental Screening Dental Screen Date: 12/22/23 Did you have a dental visit in the last 12 months?: Yes Did you have a dental problem in the last 6 months where you did not have access to dental care?: No Was dental information given to patient?: Patient has dentist HPI PE HPI Details Patient presents for physical. She complains of chronic lower back pain and muscle spasm. She has been to pain management and had cortisone injection with only temporary relief. Patient has been taking gabapentin and intermittently muscle relaxant with only some relief. She tried physical therapy but has not been doing regular lower back exercises. Patient reports frequent episodes of upper respiratory infections for the last 2 years. Patient was seen in walk in multiple times and was treated with Medrol Dosepak and albuterol inhaler prn. she denies cough or wheezing on regular basis and has not been using albuterol inhaler more than once a week. Patient has a history of seasonal allergies and would like to see an space control agent. Patient gained weight despite trying to eat well-balanced diet decreasing caloric intake. She is planning to start using her elliptical machine more regularly. [facility] Medical History Renal calculi Breast pain Hot flashes Overweight Annual physical exam DJD (degenerative joint disease) Endometriosis Surgical History S/P hysterectomy Family History Father No problems noted. Mother No problems noted. Social History Housing: House Alcohol intake: current Alcohol intake frequency: holidays/special occasions only Patient Tobacco Use Status: Never used Tobacco e-Cigarette/Vaping Use: Never Used service: No Current occupational status: employed Cognitive needs: No Hearing needs: No Vision needs: No Questionnaire PHQ-9 Over the last 2 weeks, how often have you been bothered by any of the following problems? 1. Little interest or pleasure in doing things: not at all 2. Feeling down, depressed, or hopeless: not at all 3. Trouble falling or staying asleep, or sleeping too much: several days 4. Feeling tired or having little energy: several days 5. Poor appetite or overeating: not at all 6. Feeling bad about yourself - or that you are a failure or have let yourself or your family down: not at all 7. Trouble concentrating on things, such as reading the newspaper or watching television: several days 8. Moving or speaking so slowly that other people could have noticed. Or the opposite - being so fidgety or restless that you have been moving around a lot more than usual: not at all 9. Thoughts that you would be better off or of hurting yourself in some way: not at all Total score: 3 Depression Screening Interpretation: Negative Depression Screening Done: Yes 60036 - PHQ-9 Billing: Yes Source: Developed by Drs. Pavan Law, Blank SumnerScott and colleagues, with an educational adonay from [employer]. Thrive Questionnaire Date Thrive assessed: 12/22/23 I am a: Patient What is your living situation today?: I have a steady place to live Within the past 12 months, did the food you bought not last and you didn't have the money to get more?: Never true Within the past 12 months, did you worry whether your food would run out before you got money to buy more?: Never true Do you have trouble paying for medicines?: No Do you have trouble getting transportation to medical appointments?: No Do you have trouble paying your heating and electricity bill?: No Do you have trouble taking care of your child, family member or friend?: No Do you have trouble with day-to-day activities such as bathing, preparing meals, shopping, managing finances, etc.?: No Are you interested in more education?: No Please select the resources that you would like help with: None Currently or been in a relationship where the following occur: No concerns reported THRIVE Score: 0 AUDIT C Alcohol Use Questionnaire (AUDIT-C) 1. How often do you have a drink containing alcohol?: Monthly or less 2. How many drinks containing alcohol do you have on a typical day when you are drinking?: 1 or 2 3. How often do you have six or more drinks on one occasion?: Less than monthly Total Score: 2 CLINTON-7 AMB Questionnaire CLINTON-7 Date CLINTON - 7 assessed: 12/22/23 Feeling nervous, anxious, or on edge: 1 = Several days Not being able to stop or control worryin = Not at all Worrying too much about different things: 1 = Several days Trouble relaxin = Several days Being so restless that it is hard to sit still: 0 = Not at all Becoming easily annoyed or irritable: 1 = Several days Feeling afraid as if something awful might happen: 0 = Not at all Total CLINTON-7 score (0-4 normal; 5-9 mild; 10-14 moderate; 15-21 severe): 4 Source: Developed by Drs. Pavan Law, Blank Sumner, Scott Fragoso and colleagues, with an educational adonay from [employer]. CLINTON-7 Assessment Billing CLINTON-7 Assessment Tool: CLINTON-7 Assessment 30909 Review of Systems Const All systems reviewed & are unremarkable except as noted in HPI and below Eyes Reports no additional complaints ENT Reports no additional complaints Card Reports no additional complaints Resp Reports no additional complaints GI Reports no additional complaints Reports no additional complaints Physical exam (Primary Care) Vital Signs: Last Vital Signs Pulse 92 12/22/23 11:48 BP 118/76 12/22/23 11:48 Pulse Ox 97 12/22/23 11:48 Oxygen Delivery Method Room Air 12/22/23 11:48 BMI result Body Mass Index 51.8 Tobacco/Smoking Status: Tobacco use Status Tobacco use date assessed 12/22/23 12/22/23 11:56 Patient Tobacco Use Status Never used Tobacco 12/22/23 11:48 e-Cigarette/Vaping Use Never Used 12/22/23 11:48 PHQ-9: PHQ-9 Score PHQ-9: Total score 3 12/22/23 11:56 Depression Screening Interpretation: Negative Thrive Assessment: Date of Thrive Assessment Date Thrive assessed 12/22/23 12/22/23 11:56 Currently or been in a relationship where the following occur: No concerns reported Const General: no acute distress HENMT Ears: hearing grossly normal bilaterally Mouth: Normal oral and palatal mucosa present Eyes General: appearance normal, both eyes and all related structures Neck Neck: Yes no lymphadenopathy and Yes supple Resp Effort & Inspection: normal respiratory effort Auscultation: clear to auscultation bilaterally Cardio Rhythm: regular rhythm Heart sounds: S1 normal heart sound present and S2 normal heart sound present GI Inspection: Yes normal to inspection Palpation (GI): Soft to palpation Auscultation: normal bowel sounds Back/Spine/Pelvis Other: Paraspinal tenderness in the lower lumbar region, straight leg rising 90 degrees bilaterally Extrem General: Yes no clubbing, cyanosis or edema Coding Level of Care Code Est Pt Prev Care 40-64y(30406) Diagnoses Asthma J45.909 Allergic rhinitis J30.9 Annual physical exam Z00.00 Morbid obesity with BMI of 50.0-59.9, adult E66.01; Z68.43 Chronic lower back pain M54.50; G89.29 Additional Codes CLINTON-7 Assessment Billing - CLINTON-7 Assessment Tool: CLINTON-7 Assessment 87195 ([id number]) Assessment & Plan Assessment & Plan (1) Asthma: Code(s): J45.909 - Unspecified asthma, uncomplicated Category: Medical Plan: For mild asthma continue albuterol and scheduled pulmonary function test at [facility] (2) Allergic rhinitis: Code(s): J30.9 - Allergic rhinitis, unspecified Category: Medical Plan: Referred to space control agent (3) Annual physical exam: Code(s): Z00.00 - Encounter for general adult medical examination without abnormal findings Category: Medical Plan: Well-balanced diet regular physical activity discussed with the patient she will schedule an appointment with the talent scout and return for fasting blood work (4) Morbid obesity with BMI of 50.0-59.9, adult: Code(s): E66.01 - Morbid (severe) obesity due to excess calories; Z68.43 - Body mass index [BMI] 50.0-59.9, adult Category: Medical Plan: Decreasing caloric intake increasing physical activity discussed with the patient. She declined referral to observatory director. She is interested in trying Wegovy to facilitate weight loss. She will start 0.25 mg weekly for the 1st month then increase to 0.5 mg weekly. Patient will monitor her weight and will follow-up in 2 months (5) Chronic lower back pain: Code(s): M54.50 - Low back pain, unspecified; G89.29 - Other chronic pain Category: Medical Plan: Patient was advised to restart regular lower back exercises she learned at physical therapy continue gabapentin, and try to lose weight. Orders: Orders PFT pulmonary function test Today J45.909 - Unspecified asthma, uncomplicated Comprehensive [place]. Panel Fast Today Z00.00 - Encounter for general adult medical examination without abnormal findings Lipid Panel Today Z00.00 - Encounter for general adult medical examination without abnormal findings Complete Blood Count Auto Diff Today Z00.00 - Encounter for general adult medical examination without abnormal findings TSH reflex Free T4 Today Z00.00 - Encounter for general adult medical examination without abnormal findings UA w Microscopic Today Z00.00 - Encounter for general adult medical examination without abnormal findings Referrals Allergy & Immunology Referral J30.9 - Allergic rhinitis, unspecified Medications: New semaglutide (weight loss) (Wegovy) administer weeks 1 through 4 of therapy 0.25 mg (0.5 mL) subcut QWEEK 2 mL 2RF
== END 2023-12-22 13:06 | disposition home or self-care (01) ==
PROVIDERS: PCP Internal Medicine; Visit Provider Internal Medicine
DX: J45.909 Unspecified asthma, uncomplicated (principal); J30.9 Allergic rhinitis, unspecified; Z00.00 Encounter for general adult medical examination without abnormal findings; E66.01 Morbid (severe) obesity due to excess calories; Z68.43 Body mass index [BMI] 50.0-59.9, adult; M54.50 Low back pain, unspecified; G89.29 Other chronic pain

== ENCOUNTER → 2023-12-22 11:44 | Outpatient (BNVA) | payer OTHER, SELFPAY | PROVIDERS: PCP Internal Medicine; Visit Provider Internal Medicine | DX: Z00.00 Encounter for general adult medical examination without abnormal findings (principal); J45.909 Unspecified asthma, uncomplicated; E66.01 Morbid (severe) obesity due to excess calories; Z68.43 Body mass index [BMI] 50.0-59.9, adult; G89.29 Other chronic pain; M54.50 Low back pain, unspecified | CPT/HCPCS: 96127 ==

== ENCOUNTER 2023-12-23 07:39 | Outpatient (REF) | payer OTHER, SELFPAY ==
[2023-12-23 10:59] LABS: MANUAL DIFF FLAG NO
[2023-12-23 11:19] LABS: Basophils Absolute Auto 0.1 X10*3/uL (0.0-0.2); Basophils Percent Auto 0.9 % (0-2); Eosinophils Absolute Auto 0.3 X10*3/uL (0.0-0.4); Eosinophils Percent Auto 4.4 % (0-4); Hematocrit 40.8 % (37.0-47.0); Hemoglobin 13.7 g/dl (12.0-16.0); Imm Gran Abs Auto 0.01 X10*3/uL (0.00-0.03); Imm Gran Pct Auto 0.1 % (0.0-0.4); Lymphocytes Absolute Auto 1.8 X10*3/uL (1.2-4.9); Lymphocytes Percent Auto 25.5 % (20-40); Mean Corpuscular HGB Conc 33.6 g/dl (31.0-35.0); Mean Corpuscular Hemoglobin 29.7 pg (27.0-33.0); Mean Corpuscular Volume 88.3 fL (80.0-98.0); Mean Platelet Volume 10.1 fL (9.4-12.3); Monocytes Absolute Auto 0.5 X10*3/uL (0.1-1.2); Neutrophils Absolute Auto 4.3 x10*3/uL (2.0-8.3); Neutrophils Percent Auto 62.1 % (45-73); Platelet Count 297 X10*3/uL (160-400); Red Blood Count 4.62 X10*6/uL (4.20-5.50); Red Cell Distribution Width 12.9 % (11.0-16.0)
[2023-12-23 11:48] LABS: Appearance Urine Clear; Color Urine Yellow; Glucose Urine UA Negative (Negative); Leukocyte Esterase Urine Negative (Negative); Nitrite Urine Negative (Negative); PH 6.5 (5.0-9.0); Urine Blood Negative (Negative); Urine Ketones Negative (Negative); Urine Protein Negative (Neg-Trace)
[2023-12-23 12:02] LABS: Bacteria Urine 1+ (None Seen); Hyaline Casts Urine 0-2 /LPF (0-2); RBC Urine 0-2 /HPF (0-2); WBC Urine 0-5 /HPF (0-5)
[2023-12-23 12:17] LABS: Alanine Aminotransferase 29 U/L (0-31); Albumin Level 4.1 g/dL (3.5-5.0); Alkaline Phosphatase 74 U/L (39-117); Anion Gap 11 (12-20); Aspartate Amino Transferase 19 U/L (5-31); Bilirubin Total 0.6 mg/dL (0.0-1.0); Blood Urea Nitrogen 10 mg/dL (9-16); Calcium 8.7 mg/dL (8.4-10.2); Carbon Dioxide 24 mmol/L (22-29); Chloride 108 mmol/L (96-108); Cholesterol 157 mg/dL (<200); Estimated Glomerular Filt Rate > 60; Glucose Fasting 103 mg/dL (60-99); HDL Cholesterol 36 mg/dL (>40); LDL Cholesterol Calculated 97 mg/dL (<100); Sodium 139 mmol/L (135-145); TSH reflex Free T4 1.47 uIU/mL (0.32-4.0); Triglycerides 122 mg/dL (<150)
== END 2023-12-23 07:40 | disposition home or self-care (01) ==
LOC: HO.HMGCLDS 07:39
PROVIDERS: PCP Internal Medicine; Visit Provider Internal Medicine
DX: Z00.00 Encounter for general adult medical examination without abnormal findings (principal)
CPT/HCPCS: 36415; 80053; 80061; 81001; 84443; 85025

== ENCOUNTER 2024-07-15 08:03 | Outpatient (AMB) | payer BC, SELFPAY ==
--- OUTSIDE RECORDS SUMMARY | 2024-07-15 08:15 | XMS_ITS ---
Author Name [facility] Organization Unknown Care Team Organization Name Specialty Phone Email Start Date End Da te [employer] 03/09/2024
--- NOTE | 2024-07-15 08:43 | MHC.OFFWIV ---
Intake Vital Signs 07/15/24 08:45 Height 5 ft 1 in Weight 274 lb BMI 51.8 BP 116/80 Blood Pressure Location Rt brachial Position Sitting Pulse 86 Pulse Source Pulse Oximeter Temp 98.5 F Temp Source Oral Pulse Oximetry (%) 97 Oxygen Delivery Method Room Air Intake Visit Reasons: EP LT tonsil swelling/bleeding, LT ear irritation Intake Note: Patient here for left tonsil swelling and bleeding that and left ear pain. Patient Tobacco Use Status: Never used Tobacco Allergies naproxen [NAPROXEN] Allergy (Severe, Verified 07/15/24 08:48) ANAPHALYXIS codeine [CODEINE] Allergy (Intermediate, Verified 07/15/24 08:48) RASH Penicillins [PCN] Allergy (Intermediate, Verified 07/15/24 08:48) UNKNOWN penicillin V Allergy (Unknown, Verified 07/15/24 08:48) Unknown liquid codeine Allergy (Mild, Uncoded 07/15/24 08:48) Rash penicillin Allergy (Mild, Uncoded 07/15/24 08:48) hives Ieyynlx-Pqwekxkqbhgejqpp-JAPF Allergy (Unknown, Uncoded 07/15/24 08:48) Unknown naproxen Adverse Reaction (Severe, Uncoded 07/15/24 08:48) Anaphylaxis Do you need a note to return to daycare/school/sports/work: Yes HPI HPI Comments History of Present Illness Details History - The patient is a 44-year-old female presenting with swollen and bleeding tonsils with white patches. - Symptoms began with nocturnal bleeding from the mouth noted last night and increased swelling and discoloration of the tonsils upon morning self-examination, with no associated fever or neck swelling. - Symptoms are predominantly on the left side of the throat. - Experiencing fatigue, exacerbated by prolonged driving over a 24-hour trip from [place] over the weekend. - The patient has a history of tonsillitis, with this episode noted as more severe. Physical Exam General: Cooperative, healthy appearing, comfortable and no acute distress Orientation/consciousness: Patient oriented x3 Limitations: No limitations Head: Normal to inspection Ears: Hearing grossly normal bilaterally, external ears normal and TM's normal bilaterally Nose: Normal external nose present, Normal nares present and No nasal discharge present Face and sinus: Normal facial exam Mouth: Normal oral and palatal mucosa present and moist mucous membranes Throat: left Tonsil swollen with exudates, Yes uvula midline. Posterior oropharynx erythema Eyes: Appearance normal, both eyes and all related structures Neck: Normal visual inspection Respiratory: Normal respiratory effort, able to speak in complete sentences, no respiratory distress, not tachypneic, no tripod positioning and no use of accessory muscles Skin: No rashes or lesions noted Neuro: Patient oriented x3 Extremities: Normal to inspection and Yes no clubbing, cyanosis or edema PFSH Medical History Renal calculi Breast pain Hot flashes Overweight Annual physical exam DJD (degenerative joint disease) Endometriosis Surgical History S/P hysterectomy Family History Father No problems noted. Mother No problems noted. Social History Housing: House Alcohol intake: current Alcohol intake frequency: holidays/special occasions only Patient Tobacco Use Status: Never used Tobacco e-Cigarette/Vaping Use: Never Used service: No Current occupational status: employed Cognitive needs: No Hearing needs: No Vision needs: No Review of Systems Const All systems reviewed & are unremarkable except as noted in HPI and below Physical Exam Vital Signs: Last Vital Signs Temp 98.5 F 07/15/24 08:45 Pulse 86 07/15/24 08:45 BP 116/80 07/15/24 08:45 Pulse Ox 97 07/15/24 08:45 Oxygen Delivery Method Room Air 07/15/24 08:45 BMI result Body Mass Index 51.8 Assessment & Plan Assessment & Plan (1) Strep pharyngitis: Code(s): J02.0 - Streptococcal pharyngitis Plan: VSS, pt well appearing and PE remarkable for left sided tonsillar edema, erythema and exudates. Rapid strep in office negative, Centor Score 3 points, 28-35% probability of strep pharyngitis so I will treat. Acute tonsillitis is diagnosed and treatment commenced with Keflex cephalexin, chosen due to the patient's penicillin allergy. Keflex will be taken at a dosage of 500 mg twice daily for 10 days. Alternative treatments were discussed in case of cephalexin intolerance. The prescription is sent to the [facility] pharmacy on [facility]. The patient is advised on adjunctive measures like warm saltwater rinses and ibuprofen for pain. I discussed precautions regarding potential transmission to family and advised she remain off work, especially around children, until 48 hours of antibiotic therapy is completed. A work note will be provided. If no improvement . Patient was informed and verbally consented to the use of an ambient scribe for clinic note documentation during this visit Medications: New cephalexin 500 mg PO Q12H 10 days 20 caps 0RF Coding Level of Care Code Est Pt Level 3 (69465) Diagnoses Strep pharyngitis J02.0
[2024-07-15 08:45] VITALS: BP 116/80; PULSE 86; TEMP 36.9; O2SAT 97; BMI 51.8
== END 2024-07-15 09:18 | disposition home or self-care (01) ==
PROVIDERS: PCP Internal Medicine; Visit Provider Physician Assistant
DX: Z13.9 Encounter for screening, unspecified (principal); J02.0 Streptococcal pharyngitis

== ENCOUNTER → 2024-07-15 08:03 | Outpatient (BNVA) | payer BC, SELFPAY | PROVIDERS: PCP Internal Medicine; Visit Provider Physician Assistant | DX: J02.0 Streptococcal pharyngitis (principal) | CPT/HCPCS: 87880 ==